=== PATIENT | female | born 1955 | race Caucasian/White ===

== ENCOUNTER 2024-12-28 11:09 | Inpatient (IN) | payer MEDICARE, OTHER, SELFPAY ==
[2024-12-26 08:20] VITALS: BP 163/85
--- NOTE | 2024-12-26 09:41 | ED.GENMED ---
History of Present Illness
General
Chief Complaint: Abdominal Symptoms
Source: patient
Exam Limitations: none
Time Seen by Provider: 12/26/24 09:09
Nursing documentation reviewed up to this point in time: agreed with
Travel History
Have you traveled to any high risk areas for coronavirus over the past 14 days?: No
History of Present Illness
History of Present Illness:
The patient is a pleasant 69-year-old female who reports 5 days of watery, nonbloody frequent episodes of diarrhea, as well as 3 days of vomiting, especially after a coughing spell. Patient reports she has been recovering from bronchitis. She
denies any recent antibiotic use. She reports her doctor gave her steroids for the bronchitis. She reports chills but no definite fever. Patient reports that last night she had difficulty sleeping due to pain on her right upper side and frequent
episodes of nausea and vomiting. Patient reports that the pain on her right upper side is no worse when she takes a deep breath. She is currently not nauseous. She denies sick contacts and recent travel.
Past History
Past History
ED Past Medical History: Asthma, HTN, Hypercholesterolemia and Hypothyroidism
ED Past Surgical History: Tonsilectomy
Social History
Tobacco: Non-smoker
Alcohol: None
Drug: None
Personal:
Living: with family
Employment: Employed
Review of Systems
Review of Systems
Allergies reviewed?: Yes
All Other Systems: ROS reviewed and negative except as documented in HPI and ROS
Constitutional: Reports fatigue and chills
EENT: Reports no symptoms
Respiratory: Reports cough
Cardiac: Reports no symptoms
ABD/GI: Reports abdominal pain, nausea, vomiting and diarrhea
: Reports no symptoms
Musculoskeletal: Reports other (Right upper side pain)
Skin: Reports no symptoms
Neurological: Reports no symptoms
Endocrine: Reports no symptoms
Hematologic/Lymphatic: Reports no symptoms
Psychiatric: Reports no symptoms
Phy Exam
Physical Exam
Physical Exam:
Physical Exam
General: no apparent distress, not acutely ill
Neck: supple. no meningeal signs. normal psoterior pharynx
Heart: s1/s2 regular rate and rhythm, no murmur. equal radial pulses.
Lungs: no acute respiratory distress. clear bilaterally
Abdomen: Normal bowel sounds, reproducible tenderness right lateral chest wall area/upper part of right upper quadrant. Abdomen is soft and nontender throughout
Neuro: alert and oriented. no focal neurological deficits
Skin: no rash
Psychiatric: well kept. interactive and cooperative
Extremities: no edema. no calf tenderness. negative homans. good distal pulses
Course
Orders/Labs/Results
Orders:
Orders
12/26/24 09:31
Complete Blood Count/With Diff Urgent
Comprehensive Metabolic Panel Urgent
Lipase Urgent
12/26/24 09:40
STOOL [C difficile Antigen & Toxins] Urgent
SARINA Source: Feces/Stool
Specimen Description:
Stool Culture Urgent
SARINA Source: Feces/Stool
Specimen Description:
0.9% Sodium Chloride 1000 ml [Nss] 1,000 ml IV BOLUS
12/26/24 09:47
CR Chest - 2 Views Urgent
Comment:
Reason For Exam: R upper flank pain
12/26/24 10:35
Urinalysis Reflex To Culture Urgent
Date Specimen was Collected: 12/26/24
Time Specimen was Collected: 10:34
Urine Microscopic Reflex Cult Urgent
Urine Culture Urgent
SARINA Source: U
Specimen Description:
Date Specimen was Collected: 12/26/24
Time Specimen was Collected: 10:34
12/26/24 11:00
CT Chest W/o Iv Contrast Urgent
Comment:
Reason For Exam: cough, history of nodule on lung
12/26/24 11:01
CT Abd/pelvis W Iv Cont Urgent
Comment:
Reason For Exam: n/v, R sided ab pain
12/26/24 12:41
CefTRIAXone [Rocephin] 1,000 mg IV NOW STA
Prochlorperazine [Compazine] 10 mg IV NOW STA
Abnormal Lab Results
12/26/24 12/26/24
09:31 10:35
RBC 5.70 H 10^6/uL
(4.20-5.40)
Hct 50.8 H %
(37.0-47.0)
MCHC 31.5 L g/dL
(33.0-37.0)
Abs Immat Gran (auto) 0.1 H 10^3/uL
(0-0.05)
Absolute Neuts (auto) 8.0 H 10^3/uL
(1.4-6.5)
Absolute Lymphs (auto) 1.1 L 10^3/uL
(1.2-3.4)
Immature Gran % 0.7 H %
(0-0.5)
Neutrophils % 79.6 H %
(42.2-75.2)
Lymphocytes % 11.3 L %
(20.5-51.1)
Chloride 111 H mmol/L
(98-107)
Glucose 114 H mg/dl
(70-99)
Calcium 10.4 H mg/dl
(8.4-10.2)
Ur Occult Blood Reflex 4+ A
(Negative)
Leukocyte Esterase Rfl 3+ A
(Negative)
Urine RBC 50-60 A /HPF
(0-2)
Urine WBC (Reflex) 90-100 A /HPF
(0-5)
Urine Bacteria (Reflex) Moderate A
(Negative)
Urine Albumin (Reflex) 2+ A
(Neg - Trace)
12/26/24 09:31
12/26/24 09:31
Vital Signs
Initial and Last Documented VS:
Initial Vital Signs
Temp Pulse Resp BP Pulse Ox
98.3 F 66 16 163/85 98
12/26/24 08:20 12/26/24 08:20 12/26/24 08:20 12/26/24 08:20 12/26/24 08:20
Last Documented Vital Signs
Temp Pulse Resp BP Pulse Ox
97.8 F 58 20 137/78 98
12/26/24 11:47 12/26/24 11:47 12/26/24 11:47 12/26/24 11:47 12/26/24 11:47
MDM/Problems Addressed
Differential Diagnosis Includes:
Pneumonia, acute cholecystitis, musculoskeletal strain from coughing, C. difficile, gastroenteritis
MDM/Problems Addressed:
Patient presents with acute cough, right upper side pain, fatigue, vomiting and diarrhea
Acute Exacerbation and/or Progression of Chronic Illness:
Patient is acutely hypertensive likely due to not feeling well and anxiety being in the ED. She reports she generally never has high blood pressure
Acute Exacerbation and/or Progression of Chronic Illness: HTN
*Radiology
Radiology exam reviewed: preliminary read by ED provider (Chest x-ray read by me. No acute disease) and radiology read reviewed
*Pulse Oximetry
Patient hypoxic: no
*Critical Care Note
Total Time (30-74mins, 75-104mins- exclusive of procedures): Not Applicable
Data Reviewed
Review of Other/Old Records Reveals: Radiology Studies (Normal-appearing chest x-ray July 2023. I reviewed image.)
ED Attending Note
-
Portions of this chart may have been created with voice recognition software.� Occasional wrong word or��sound alike� substitutions may have occurred due to the inherent limitations of voice recognition software.
Discharge Plan
Departure
Patient Disposition: Admit
Date of Disposition: 12/26/24
Time of Disposition: 12:40
Admit to: Med/Surg
Presentation/result/management discussed w/ accepting MD/DO: Hospitalist
Patient with high blood pressure during this ER visit?: Yes
Condition: Good
Covid-19: Not Applicable
Discharge Problem:
Acute UTI, Acute vomiting, Bilateral kidney stones, Acute diarrhea
Prescriptions:
No Action
levothyroxine 100 mcg Tablet
100 mcg PO DAILY
hydrochlorothiazide 25 mg Tablet
25 mg PO DAILY
fenofibrate 120 mg Tablet
120 mg PO DAILY
Vitamin D3
4,000 unit PO DAILY
ibuprofen [Advil] 200 mg Tablet
600 mg PO Q6H PRN (Reason: pain)
albuterol sulfate [Proventil HFA] 90 mcg/actuation HFA aerosol inhaler
2 puff inhalation Q4H PRN (Reason: shortness of breath or wheezing) Qty: 8.5 2RF
methylprednisolone [Medrol (Gary)] 4 mg tablets,dose pack
See Rx Instructions .ROUTE .COMPLEX Qty: 21 0RF
Rx Instructions:
orally per package directions
loperamide [Imodium A-D] 2 mg capsule
2 mg PO Q6H PRN (Reason: loose stool) Qty: 20 0RF
prochlorperazine maleate [Compazine] 10 mg tablet
10 mg PO Q8H PRN (Reason: nausea and vomiting) Qty: 14 0RF
Referrals:
Deshawn Milner PA [Family Provider] -
Interventions
Interventions:
*Risk Screen - Suicide Last Done: 12/26/24 08:20
*General Assessment Last Done: 12/26/24 09:36
*Neglect/Abuse Screening Last Done: 12/26/24 08:20
*ED- Fall Risk Assessment Last Done: 12/26/24 09:36
EF-Bshdtc-Lawiipgmcq Assessment Last Done: 12/26/24 09:34
Discharge Date and Time
Print Language: KYRGYZ
[2024-12-26] MEDS: NSS 1000 IV ×3 (09:42→23:49)
[2024-12-26 10:00] LABS: % Basophils 0.5 % (0-2); % Eosinophils 1.5 % (0-6); % Immature Granulocytes 0.7 % (0-0.5); % Lymphocytes 11.3 % (20.5-51.1); % Monocytes 6.4 % (1.7-9.3); % Neutrophils 79.6 % (42.2-75.2); Absolute Basophils 0.1 10^3/uL (0-0.2); Absolute Eosinophils 0.2 10^3/uL (0-0.7); Absolute Immature Granulocytes 0.1 10^3/uL (0-0.05); Absolute Lymphocytes 1.1 10^3/uL (1.2-3.4); Absolute Monocytes 0.6 10^3/uL (0.1-0.6); Hematocrit 50.8 % (37.0-47.0); Mean Corp Hgb Conc. 31.5 g/dL (33.0-37.0); Mean Corpuscular Hgb 28.1 pg (27.0-31.0); Mean Corpuscular Volume 89.1 fL (81.0-99.0); Mean Platelet Volume 10.1 fL (7.4-10.4); Nucleated Red Blood Cells % 0 %; Platelet Count 292 10^3/uL (130-400); Red Cell Dist. Width 14.4 % (11.5-14.5)
[2024-12-26 10:09] LABS: ALT (SGPT) 19 U/L (0-35); AST (SGOT) 17 U/L (14-36); Albumin 4.4 g/dl (3.5-5.0); Alkaline Phosphatase 53 U/L (38-126); Blood Urea Nitrogen 13 mg/dl (7-17); Calcium 10.4 mg/dl (8.4-10.2); Carbon Dioxide 24 mmol/L (22-30); Chloride 111 mmol/L (98-107); Glucose 114 mg/dl (70-99); Lipase 47 U/L (23-300); Potassium 4.7 mmol/L (3.5-5.1); Sodium 141 mmol/L (135-145); Total Bilirubin 0.6 mg/dl (0.2-1.3); eGFR > 60.00
[2024-12-26 10:55] LABS: Urine Albumin 2+ (Neg - Trace); Urine Bilirubin Negative (Negative); Urine Character Slightly Cloudy (Clear); Urine Color Yellow; Urine Glucose Negative (Negative); Urine Ketone Negative (Negative); Urine Leukocyte 3+ (Negative); Urine Nitrite Negative (Negative); Urine Occult Blood 4+ (Negative); Urine Specific Gravity 1.025 (<1.030); Urine Urobilinogen Negative (Neg - 1+)
[2024-12-26 11:47] VITALS: BP 137/78
[2024-12-26 11:51] LABS: Urine Squamous Cell >30 /LPF (Few)
[2024-12-26 11:53] LABS: Urine Amorphous Seen
[2024-12-26 11:54] LABS: Urine White Cell 90-100 /HPF (0-5)
[2024-12-26 11:56] LABS: Urine Bacteria Moderate (Negative); Urine Red Blood Cell 50-60 /HPF (0-2)
[2024-12-26] MEDS: ROCEPHIN 1000 MG IV (12:51)
[2024-12-26] MEDS: COMPAZINE 10 MG IV ×2 (12:52→21:16)
--- NOTE | 2024-12-26 13:17 | HPS.HSE ---
Family Physician
-
Family Physician: GILL Cook
Chief Complaint
-
Vomiting and Diarrhea
History of Present Illness
Patient is 69 y/o female past medical history of hypertension, hyperlipidemia, and hypothyroidism who presents with vomiting and diarrhea. Patient reports significant diarrhea over the past 5 days. She reports episodes can occur almost every
hour. She describes stool as pure liquid and denies any bloody diarrhea. She also reports vomiting with inability to tolerate any oral intake at this point in time. She reports significant chills but denies any recorded fevers. She denies similar
episodes in the past. She denies recent antibiotics, recent travel, unusual food intake or sick contacts.
Medical History
Past Medical History
Past Medical History: Reports Other
Additional Past Medical History:
Essential Hypertension
Hyperlipidemia
Hypothyroidism
Asthma
Past Surgical History: Reports Other
Additional Past Surgical History:
Uterine Artery Embolization
Tonsillectomy
Left Breast Lipoma Removal
Social History
Tobacco: Non-smoker
Alcohol: Occasional
Drug: None
Family History
Family History: Not pertinent
Allergies / Home Medications
Allergies reflects when Allergies were last updated in [facility].
Home Medications with original date entered in [facility]
Allergy/Medication List:
Allergies
Allergy/AdvReac Type Severity Reaction Status Date / Time
acetaminophen Allergy Unknown Verified 12/26/24 08:23
codeine Allergy Unknown Verified 12/26/24 08:23
fentanyl Allergy Unknown Verified 12/26/24 08:23
ondansetron Allergy Unknown Verified 12/26/24 08:23
oxycodone Allergy Unknown Verified 12/26/24 08:23
silver sulfadiazine Allergy Unknown Verified 12/26/24 08:23
Sulfa (Sulfonamide Allergy Unknown Verified 12/26/24 08:23
Antibiotics)
trimethobenzamide Allergy Unknown Verified 12/26/24 08:23
Home Medications
cholecalciferol (vitamin D3) 25 mcg (1,000 unit) tablet (Vitamin D3) 25 mcg PO DAILY 05/03/22
hydrochlorothiazide 25 mg tablet 25 mg PO DAILY 05/03/22
ibuprofen 200 mg tablet (Advil) 600 mg PO Q6HPRN PRN mild pain 05/03/22
levothyroxine 100 mcg tablet 100 mcg PO DAILY 05/03/22
albuterol sulfate 90 mcg/actuation aerosol inhaler 2 puff inhalation R Q6HPRN PRN sob 12/26/24
budesonide-formoterol HFA 160 mcg-4.5 mcg/actuation aerosol inhaler (Breyna) 2 inh inhalation R BID 12/26/24
fenofibrate 160 mg tablet 160 mg PO DAILY 12/26/24
Review of Systems
-
History Source: Patient
A 12 point ROS was completed and negative except as noted: Yes
Constitutional: Denies Fever or Chills
Respiratory: Denies Cough or Trouble Breathing
Cardiac: Denies Chest Pain or Palpitations
Physical Exam
Vital Signs
Vital Signs
Temp Pulse Resp BP Pulse Ox
97.8 F 58 20 137/78 98
12/26/24 11:47 12/26/24 11:47 12/26/24 11:47 12/26/24 11:47 12/26/24 11:47
Physical Exam
General: Comfortable, Conversant and Morbidly Obese
HEENT: NormoCephalic, Anicteric and Atraumatic
Respiratory: Clear and Non Labored Respirations; No Wheezes
Cardiac: S1/S2 and Regular Rhythm; No Tachycardia
GI: Soft, Non Tender and Other (Protuberant)
Rectal: Deferred by Provider
Musculoskeletal: No Clubbing and No Cyanosis
Skin: Warm and Dry
Neuro: Awake, Alert, Oriented and Nonfocal/grossly intact
Psych: Calm
Laboratory Results
-
12/26/24 09:31
12/26/24 09:31
Laboratory Results
Total Bilirubin 0.6 mg/dl (0.2-1.3) 12/26/24 09:31
AST 17 U/L (14-36) 12/26/24 09:31
ALT 19 U/L (0-35) 12/26/24 09:31
Alkaline Phosphatase 53 U/L (38-126) 12/26/24 09:31
Lipase 47 U/L (23-300) 12/26/24 09:31
Chest X-Ray:
No acute cardiopulmonary process.
Chest CT Scan:
No CT evidence for acute cardiopulmonary process.
4 mm and 2 mm solid pulmonary nodules in the left lower lobe.
Abd/Pelvis CT Scan:
CT findings are most suspicious for an enteritis, greatest in the upper abdomen involving proximal jejunal small bowel loops with wall thickening, inflammatory fat stranding, and reactive mesenteric lymphadenopathy.
Bilateral nephrolithiasis.
Data Reviewed
-
CT Scan: Report Reviewed by me
Lab Data: Labs Reviewed by me
Impression/Plan
-
Small Bowel Enteritis, likely viral in nature
-Continue NPO/IVFs with sips and chips
-Continue anti-emetics
-Attempt to check stool studies
Abnormal Urinalysis
-Appears mostly contaminated
-Patient received one dose of ceftriaxone in ED - Hold on further antibiotics pending urine culture
Essential Hypertension
-Hold HCTZ while NPO
Hyperlipidemia
-Continue fenofibrate
Hypothyroidism
-Continue levothyroxine
Asthma, no acute exacerbation
-Continue budesonide-formoterol
-Continue albuterol prn
Pulmonary Nodules
-Follow-up as outpatient
DVT proph: Lovenox
Code Status: Full Code
--- NOTE | 2024-12-26 13:38 | W.PN.UPDATE ---
Update Note
Progress Note Update
This is an addendum to the H&P written by Kendra Sargent on 12/26/2024.� Patient seen and examined independently with PA.
69-year-old female past medical history of asthma, hypertension, hypercholesteremia, hypothyroidism presenting with 5 days of watery, nonbloody frequent diarrhea 3 days of vomiting.� Has been having cough from recovering bronchitis.� Chills without
fever.� Having pain in the right upper quadrant abdomen.
Vital signs normal.
Urinalysis shows 90-100. CT abdomen pelvis shows enteritis greatest in the upper abdomen involving proximal jejunal small bowel loops with wall thickening, inflammatory fat stranding and reactive mesenteric lymphadenopathy.
Patient with likely acute viral gastroenteritis.
NPO.� Check stool studies.� IV fluids.� Given ceftriaxone for UTI however will discontinue as no urinary symptoms.
[2024-12-26 16:21] VITALS: BMI 46.8
[2024-12-26 18:03] VITALS: BP 138/69
[2024-12-26] MEDS: SYMBICORT 160/4.5 MCG INHALER 2 PUFF INH (21:45)
[2024-12-27] VITALS (7 sets, daily range): BP systolic 126–178; BP diastolic 64–77; BMI 47.1
[2024-12-27 05:59] LABS: Hematocrit 44.8 % (37.0-47.0); Hemoglobin 14.2 g/dL (12.0-16.0); Mean Corp Hgb Conc. 31.7 g/dL (33.0-37.0); Mean Corpuscular Volume 88.2 fL (81.0-99.0); Platelet Count 234 10^3/uL (130-400); Red Blood Cell Count 5.08 10^6/uL (4.20-5.40); Red Cell Dist. Width 14.3 % (11.5-14.5); White Blood Cell Count 8.8 10^3/uL (4.8-10.8)
[2024-12-27] MEDS: SYNTHROID PO (06:01)
[2024-12-27 06:18] LABS: Blood Urea Nitrogen 13 mg/dl (7-17); Calcium 9.4 mg/dl (8.4-10.2); Carbon Dioxide 19 mmol/L (22-30); Chloride 115 mmol/L (98-107); Estimated Creatinine Clearance > 125 ml/min; Glucose 111 mg/dl (70-99); Potassium 4.2 mmol/L (3.5-5.1); Sodium 141 mmol/L (135-145); eGFR > 60.00
[2024-12-27] MEDS: SYMBICORT 160/4.5 MCG INHALER 2 PUFF INH ×2 (08:10→20:04)
[2024-12-27] MEDS: TRICOR 145 MG PO (08:19)
[2024-12-27] MEDS: NSS 1000 IV (08:30)
[2024-12-27] MEDS: SODIUM BICARBONATE 1150 MEQ IV ×2 (09:28→20:49)
--- NOTE | 2024-12-27 09:47 | CM ---
CM met with pt bedside
Pt resides with her dtr (35 y/o) and granddtr (7 y/o) in a [place] with [address]STE
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
Denies use of DMEs
Pt has Part D coverage through [employer]
SHIELDS verbally reviewed, copy provided
PCP- Deshawn Milner
[facility]
Discharge Disposition- anticipate home no needs
--- NOTE | 2024-12-27 11:44 | W.PN.HOSP.TC ---
Today's Communication/Plan
-
see outlined plan below
Assessment / Plan
Assessment / Plan
Assessment:
Small Bowel gastroenteritis
- viral vs bacterial in nature
- start empiric Zosyn
- probiotic
- C. Diff, norovirus negative. Await stool culture
- start clears
- supportive care with anti-emetics
Iatrogenic metabolic acidosis from NSS infusion
- stop NSS infusion, switch to Bicarb
Abnormal Urinalysis
- Appears mostly contaminated
- follow culture; will be on Zosyn for GI process anyway
Essential Hypertension
- Hold HCTZ while NPO
Hyperlipidemia
- continue fenofibrate
Hypothyroidism
- continue levothyroxine
Asthma, no acute exacerbation
- continue budesonide-formoterol
- continue albuterol prn
Pulmonary Nodules
- Follow-up as outpatient
DVT proph: Lovenox
Code Status: Full Code
Anticipated Discharge: > 48 hours
Subjective/Interval History
-
Date of Service: December 27, 2024
reports less frequency diarrhea - dark contents, no blood
reports abd cramps, no pain
no nausea/vomiting
no fevers
Objective Data
-
Labs:
Laboratory Results
12/27/24
05:23
WBC 8.8
Hgb 14.2
Hct 44.8
Plt Count 234
Sodium 141
Potassium 4.2
Chloride 115 H
Carbon Dioxide 19 L
BUN 13
Creatinine 0.6
Glucose 111 H
Calcium 9.4
Vital Signs:
Vital Signs
Temp Pulse Resp BP Pulse Ox
98.0 F 54 18 134/64 95
12/27/24 08:27 12/27/24 08:27 12/27/24 08:27 12/27/24 08:27 12/27/24 08:27
I&O
12/26/24 12/27/24 12/28/24
06:59 06:59 06:59
Intake Total 1250 / 1250
Balance 1250 / 1250
Physical Exam
-
General: No Apparent Distress
HEENT: Normocephalic and Atraumatic
Respiratory: Negative Wheezes
Cardiac: Regular Rhythm and S1/S2
GI: Nontender and Nondistended
Musculoskeletal: No Edema
Neuro: AO x 3
Psych: Calm
Data Reviewed
-
Total Time Spent with Patient (in minutes): 45
Labs: Labs Reviewed by me
[2024-12-27] MEDS: ZOSYN 50 IV ×3 (12:53→23:08)
--- NOTE | 2024-12-27 17:06 | PTCARENOTE ---
Assumed care of pt. Vitals done and stable. Pt on full liquids and awaiting bed. Pt with no complaints at this time.
--- NOTE | 2024-12-27 19:11 | PTCARENOTE ---
report sent to 421- floor notified- room dirty.
[2024-12-27] MEDS: COMPAZINE 5 MG IV (19:20)
--- NOTE | 2024-12-27 20:34 | PTCARENOTE ---
Pt being sent to room 421- room ready.
--- NOTE | 2024-12-27 20:45 | PTCARENOTE ---
Pt arrived onto floor @2044. Pt AAOx3 and arrived on a hospital bed. Pt with no complaints of pain or SOB at this time. Pt oriented to room and call rodríguez; will continue to monitor
[2024-12-27] MEDS: LIDOCAINE 4% PATCH 1 PATCH TOPICAL (23:08)
[2024-12-28 03:37] VITALS: BP 141/79
[2024-12-28] MEDS: SYNTHROID 100 MCG PO (04:58)
[2024-12-28] MEDS: ZOSYN 50 IV ×3 (05:01→17:19)
[2024-12-28] MEDS: COMPAZINE 5 MG IV ×2 (06:58→20:05)
[2024-12-28 07:00] VITALS: BP 138/65
[2024-12-28] MEDS: SYMBICORT 160/4.5 MCG INHALER 2 PUFF INH ×2 (07:45→19:35)
[2024-12-28 08:06] LABS: Hematocrit 45.7 % (37.0-47.0); Hemoglobin 14.6 g/dL (12.0-16.0); Mean Corp Hgb Conc. 31.9 g/dL (33.0-37.0); Mean Corpuscular Hgb 27.9 pg (27.0-31.0); Mean Corpuscular Volume 87.2 fL (81.0-99.0); Mean Platelet Volume 10.6 fL (7.4-10.4); Platelet Count 248 10^3/uL (130-400); Red Blood Cell Count 5.24 10^6/uL (4.20-5.40); Red Cell Dist. Width 14.2 % (11.5-14.5); White Blood Cell Count 10.1 10^3/uL (4.8-10.8)
[2024-12-28 08:30] LABS: Blood Urea Nitrogen 13 mg/dl (7-17); Calcium 9.4 mg/dl (8.4-10.2); Carbon Dioxide 27 mmol/L (22-30); Chloride 105 mmol/L (98-107); Estimated Creatinine Clearance 124 ml/min; Glucose 108 mg/dl (70-99); Potassium 3.8 mmol/L (3.5-5.1); Sodium 137 mmol/L (135-145); eGFR > 60.00
[2024-12-28] MEDS: TRICOR 145 MG PO (09:10)
[2024-12-28 09:46] VITALS: BP 130/81; BP 157/82; PULSE 82
--- NOTE | 2024-12-28 11:10 | W.PN.HOSP.TC ---
Today's Communication/Plan
-
continue IV Zosyn
probiotic
diet: Fulls
Assessment / Plan
Assessment / Plan
Assessment:
Small Bowel gastroenteritis
- viral vs bacterial in nature
- continue empiric Zosyn, day 2
- probiotic daily
- C. Diff, norovirus negative. Await stool culture
- diet: advance to fulls
- supportive care with anti-emetics
Iatrogenic metabolic acidosis from NSS infusion
- improved with bicarb IVF; cap IVF now
Abnormal Urinalysis
- culture confirms contamination
Essential Hypertension
- Hold HCTZ while NPO
Hyperlipidemia
- continue fenofibrate
Hypothyroidism
- continue levothyroxine
Asthma, no acute exacerbation
- continue budesonide-formoterol
- continue albuterol prn
Pulmonary Nodules
- Follow-up as outpatient
DVT proph: Lovenox
Code Status: Full Code
Anticipated Discharge: Within 24 hours
Subjective/Interval History
-
Date of Service: December 28, 2024
tolerating clears
no abd pain
loose stools persist
Objective Data
-
Labs:
Laboratory Results
12/28/24
06:55
WBC 10.1
Hgb 14.6
Hct 45.7
Plt Count 248
Sodium 137
Potassium 3.8
Chloride 105
Carbon Dioxide 27
BUN 13
Creatinine 0.7
Glucose 108 H
Calcium 9.4
Vital Signs:
Vital Signs
Temp Pulse Resp BP Pulse Ox
97.8 F 58 16 138/65 98
12/28/24 07:00 12/28/24 07:47 12/28/24 07:47 12/28/24 07:00 12/28/24 08:00
I&O
12/27/24 12/28/24 12/29/24
06:59 06:59 06:59
Intake Total 1250 / 1250 2059
Balance 1250 / 1250 2059
Physical Exam
-
General: No Apparent Distress
HEENT: Normocephalic and Atraumatic
Respiratory: Negative Wheezes
Cardiac: Regular Rhythm and S1/S2
GI: Soft
Genito-urinary: No Costovertebral Tender
Neuro: AO x 3
Psych: Calm
Data Reviewed
-
Total Time Spent with Patient (in minutes): 42
Labs: Labs Reviewed by me
[2024-12-28] MEDS: VISBIOME 1 CAP PO (11:25)
--- NOTE | 2024-12-28 11:40 | CM ---
Chart reviewed and pt seen at bedside. Pt plans to dc home, denies CM needs at this time.
Plan: DC home, no needs
[2024-12-28 15:00] VITALS: BP 133/64
[2024-12-28] MEDS: MYLICON 80 MG PO (17:32)
[2024-12-28] MEDS: LIDOCAINE 4% PATCH 2 PATCH TOPICAL (19:32)
[2024-12-28 22:50] VITALS: BP 136/62
[2024-12-29] MEDS: ZOSYN 50 IV ×3 (00:17→12:46)
[2024-12-29] MEDS: SYNTHROID 100 MCG PO (05:38)
[2024-12-29] MEDS: COMPAZINE 5 MG IV (06:25)
[2024-12-29 07:22] VITALS: BP 128/52
[2024-12-29] MEDS: SYMBICORT 160/4.5 MCG INHALER 2 PUFF INH (07:28)
[2024-12-29] MEDS: TRICOR 145 MG PO (08:10)
[2024-12-29] MEDS: VISBIOME 1 CAP PO (08:11)
[2024-12-29 08:46] LABS: Hematocrit 44.7 % (37.0-47.0); Hemoglobin 14.6 g/dL (12.0-16.0); Mean Corp Hgb Conc. 32.7 g/dL (33.0-37.0); Mean Corpuscular Hgb 28.2 pg (27.0-31.0); Mean Corpuscular Volume 86.3 fL (81.0-99.0); Mean Platelet Volume 10.4 fL (7.4-10.4); Platelet Count 226 10^3/uL (130-400); Red Blood Cell Count 5.18 10^6/uL (4.20-5.40); White Blood Cell Count 9.8 10^3/uL (4.8-10.8)
--- NOTE | 2024-12-29 10:41 | CM ---
CM reviewed chart, patient seen bedside, IMM verbally reviewed, provided to patient, placed in chart. Patient plan remains home no needs, likely for discharge today. CM will continue to follow for all discharge planning needs.
Plan; home no needs anticipated
[2024-12-29 10:50] LABS: Blood Urea Nitrogen 11 mg/dl (7-17); Calcium 9.4 mg/dl (8.4-10.2); Carbon Dioxide 25 mmol/L (22-30); Chloride 104 mmol/L (98-107); Estimated Creatinine Clearance 124 ml/min; Glucose 99 mg/dl (70-99); Potassium 3.7 mmol/L (3.5-5.1); Sodium 137 mmol/L (135-145); eGFR > 60.00
--- NOTE | 2024-12-29 12:46 | W.PN.HOSP.TC ---
Today's Communication/Plan
-
LRD
if tolerates, dc home
PCP f/u in 1 week
Assessment / Plan
Assessment / Plan
Assessment:
Small Bowel gastroenteritis
- viral vs bacterial in nature
- dc on Augmentin total 10 days
- probiotic daily
- C. Diff, norovirus negative. Await stool culture
- diet: LRD
- supportive care with anti-emetics
Iatrogenic metabolic acidosis from NSS infusion
- improved with bicarb IVF; cap IVF now
Abnormal Urinalysis
- culture confirms contamination
Essential Hypertension
- resume HCTZ at discharge
Hyperlipidemia
- continue fenofibrate
Hypothyroidism
- continue levothyroxine
Asthma, no acute exacerbation
- continue budesonide-formoterol
- continue albuterol prn
Pulmonary Nodules
- Follow-up as outpatient
DVT proph: Lovenox
Code Status: Full Code
More than 30 minutes spent in discharge including
Final examination of the patient
Summarizing hospital stay
Instructions for continuing care to all relevant caregivers
Preparation of discharge records, prescriptions, and referral forms
Total time spent (in minutes):41
Anticipated Discharge: Today
Subjective/Interval History
-
Date of Service: December 29, 2024
diarrhea slightly improving, less frequency
tolerating fulls
Objective Data
-
Labs:
Laboratory Results
12/29/24
07:18
WBC 9.8
Hgb 14.6
Hct 44.7
Plt Count 226
Sodium 137
Potassium 3.7
Chloride 104
Carbon Dioxide 25
BUN 11
Creatinine 0.7
Glucose 99
Calcium 9.4
Vital Signs:
Vital Signs
Temp Pulse Resp BP Pulse Ox
98.6 F 58 18 128/52 98
12/29/24 07:22 12/29/24 07:29 12/29/24 07:29 12/29/24 07:22 12/29/24 08:00
I&O
12/28/24 12/29/24 12/30/24
06:59 06:59 06:59
Intake Total 2059 1440 / 1440
Balance 2059 1440 / 1440
Physical Exam
-
General: No Apparent Distress
HEENT: Normocephalic and Atraumatic
Respiratory: Negative Wheezes
Cardiac: Regular Rhythm and S1/S2
GI: Soft and Nontender
Musculoskeletal: No Edema
Neuro: AO x 3
Hematologic / Lymphatic: No Lymphadenopathy
Psych: Calm
Data Reviewed
-
Total Time Spent with Patient (in minutes): 41
Labs: Labs Reviewed by me
--- NOTE | 2024-12-29 12:54 | W.DS.TRANS ---
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
-
Discharge Instructions:
Discharge Diagnosis/Procedures Gastroenteritis
Diet Low Residue
Activity As tolerated
Bathing Restrictions None
Instructions:
Stand-Alone Forms:
Changes to Home Medications: No
Discharge Medications:
DC Medications w/original date entered in [employer]
cholecalciferol (vitamin D3) 25 mcg (1,000 unit) tablet (Vitamin D3) 25 mcg PO DAILY 05/03/22
hydrochlorothiazide 25 mg tablet 25 mg PO DAILY 05/03/22
ibuprofen 200 mg tablet (Advil) 600 mg PO Q6HPRN PRN mild pain 05/03/22
levothyroxine 100 mcg tablet 100 mcg PO DAILY 05/03/22
albuterol sulfate 90 mcg/actuation aerosol inhaler 2 puff inhalation R Q6HPRN PRN sob 12/26/24
budesonide-formoterol HFA 160 mcg-4.5 mcg/actuation aerosol inhaler (Breyna) 2 inh inhalation R BID 12/26/24
fenofibrate 160 mg tablet 160 mg PO DAILY 12/26/24
amoxicillin 875 mg-potassium clavulanate 125 mg tablet 1 tab PO Q12H #14 tabs 12/29/24
simethicone 80 mg chewable tablet 80 mg PO QIDPRN PRN gas/bloating #30 tabs 12/29/24
Home Medication Changes
Pending Results: No
Total time spent discharging patient (in min): 41
[2024-12-29 14:15] VITALS: BP 131/65
== END 2024-12-29 15:16 | disposition home or self-care (01) | DRG 392 ==
LOC: 4 WEST ACU 11:09
PROVIDERS: Physician Assistant Medical; ADMITTING PHYSICIAN Hospitalist; ATTENDING PHYSICIAN Internal Medicine; EMERGENCY PHYSICIAN Emergency Medicine; FAMILY PHYSICIAN Physician Assistant Medical
DX: A08.4 Viral intestinal infection, unspecified (principal); N39.0 Urinary tract infection, site not specified; E87.20 Acidosis, unspecified; Z68.42 Body mass index [BMI] 45.0-49.9, adult; E03.9 Hypothyroidism, unspecified; E78.00 Pure hypercholesterolemia, unspecified; E66.01 Morbid (severe) obesity due to excess calories; I10 Essential (primary) hypertension; J45.909 Unspecified asthma, uncomplicated; R91.8 Other nonspecific abnormal finding of lung field; N20.0 Calculus of kidney; Z79.890 Hormone replacement therapy; Z88.6 Allergy status to analgesic agent; Z88.1 Allergy status to other antibiotic agents; Z88.5 Allergy status to narcotic agent; Z88.2 Allergy status to sulfonamides; Z88.8 Allergy status to other drugs, medicaments and biological substances
CPT/HCPCS: 71046; 71250; 74177; 80048; 80053; 81003; 81015; 83690; 85025; 85027; 87045; 87046; 87086; 87324; 87427; 87449; 87798; 89055; 94640; 97162; Q9967

== ENCOUNTER 2025-01-08 08:25 | Emergency (ER) | payer MEDICARE, OTHER, SELFPAY ==
[2025-01-08 08:46] VITALS: BP 151/94
--- NOTE | 2025-01-08 09:37 | ED.GENMED ---
History of Present Illness
General
Chief Complaint: Skin Problem
Source: patient
Exam Limitations: none
Time Seen by Provider: 01/08/25 09:16
Nursing documentation reviewed up to this point in time: agreed with
History of Present Illness
History of Present Illness:
69 yr old female presents to the ER complaining of left arm discomfort. Pt reports she was hospitalized manage into December 29 for UTI/gastroenteritis and was on antibiotics at the time intravenously. Patient reports at that time her IV did
infiltrate. She had redness to the arm after. SHe reports she was on antibx (Augmentin ) and so when she was discharged she continued antibx and the redness resolved. She does report however that since she has noticed lumps ' in the veins ' of her
left arm. She was seen in urgent care several days ago recommended to come to the ER for ultrasound. She denies any swelling or redness. She does feel sore to the area.
Past History
Past History
ED Past Medical History: Asthma, HTN, Hypercholesterolemia and Hypothyroidism
ED Past Surgical History: Tonsilectomy
Social History
Tobacco: Non-smoker
Alcohol: None
Drug: None
Personal:
Living: with family
Employment: Employed
Review of Systems
Review of Systems
Allergies reviewed?: Yes
All Other Systems: ROS reviewed and negative except as documented in HPI and ROS
Constitutional: Reports no symptoms; Denies fever, fatigue or chills
Phy Exam
General Physical Exam
General Presentation: no apparent distress
General age: appears stated age
General Skin: warm and dry
General Habitus: obese
General Mental: alert
Neurological Exam
Neurological Exam: alert and oriented x3
Musculoskeletal Exam
Musculoskeletal Exam: other (Left upper extremity strong pulses no obvious swelling or redness, left antecubital region with mild palpable nodularity )
Skin Exam
Skin Exam: normal color
Course
Orders/Labs/Results
Orders:
Orders
01/08/25 10:06
Venous Doppler Upr Ext Left [US Periph Venous UPPER Ext LT] Urgent
Comment:
Reason For Exam: pain/hx of IV infiltration
Vital Signs
Initial and Last Documented VS:
Initial Vital Signs
Temp Pulse Resp BP Pulse Ox
98.0 F 65 16 151/94 98
01/08/25 08:46 01/08/25 08:46 01/08/25 08:46 01/08/25 08:46 01/08/25 08:46
Last Documented Vital Signs
Temp Pulse Resp BP Pulse Ox
98.0 F 65 16 151/94 98
01/08/25 08:46 01/08/25 08:46 01/08/25 08:46 01/08/25 08:46 01/08/25 08:46
MDM/Problems Addressed
Differential Diagnosis Includes:
Not limited to DVT superficial thrombophlebitis
MDM/Problems Addressed:
Ultrasound shows acute fibrosis of the left cephalic vein in both the upper arm and forearm. Patient has no evidence of infection on exam strong pulses and no acute distress and well-appearing no fevers. Case reviewed with vascular surgery on-call
Dr. Olivera this is a superficial vein and does not need anticoagulation will DC with supportive care warm compresses Motrin/tylenol and outpt follow up
*Radiology
Radiology exam reviewed: radiology read reviewed
*Pulse Oximetry
Patient hypoxic: no
*Critical Care Note
Total Time (30-74mins, 75-104mins- exclusive of procedures): Not Applicable
ED Attending Note
-
Portions of this chart may have been created with voice recognition software.� Occasional wrong word or��sound alike� substitutions may have occurred due to the inherent limitations of voice recognition software.
Discharge Plan
Departure
Patient Disposition: Home (Routine Discharge)
Date of Disposition: 01/08/25
Time of Disposition: 12:30
Patient with high blood pressure during this ER visit?: Yes
Condition: Fair
Covid-19: Not Applicable
Discharge Problem:
Acute cephalic vein thrombosis
Instructions: BLOOD PRESSURE
Prescriptions:
No Action
levothyroxine 100 mcg Tablet
100 mcg PO DAILY
hydrochlorothiazide 25 mg Tablet
25 mg PO DAILY
cholecalciferol (vitamin D3) [Vitamin D3] 25 mcg (1,000 unit) Tablet
25 mcg PO DAILY
ibuprofen [Advil] 200 mg Tablet
600 mg PO Q6HPRN PRN (Reason: mild pain)
albuterol sulfate 90 mcg/actuation Hfa Aerosol Inhaler
2 puff INHALATION R Q6HPRN PRN (Reason: sob)
fenofibrate 160 mg Tablet
160 mg PO DAILY
budesonide-formoterol [Breyna] 160-4.5 mcg/actuation Hfa Aerosol Inhaler
2 inh INHALATION R BID
amoxicillin-pot clavulanate 875-125 mg tablet
1 tab PO Q12H Qty: 14 0RF
simethicone 80 mg Tablet,Chewable
80 mg PO QIDPRN PRN (Reason: gas/bloating) Qty: 30 0RF
Referrals:
Deshawn Milner PA [Family Provider, General]
Activity Restrictions/Additional Instructions:
As discussed , your ultrasound shows acute thrombosis of the left cephalic vein in your left arm. This does not need anticoagulation. You may also between ibuprofen and Tylenol for discomfort, apply warm compresses several times a day. Please
follow the family doctor in the next several days for reevaluation of symptoms.
return if any worsening of symptoms.
Interventions
Interventions:
*Risk Screen - Suicide Last Done: 01/08/25 08:46
*Neglect/Abuse Screening Last Done: 01/08/25 08:46
ED-Skin Assessment Last Done: 01/08/25 10:11
Discharge Date and Time
Print Language: HUNGARIAN
== END 2025-01-08 12:50 | disposition home or self-care (01) ==
LOC: EMR 08:25
PROVIDERS: EMERGENCY PHYSICIAN Student in an Organized Health Care Education/Training Program; FAMILY PHYSICIAN Physician Assistant Medical
DX: I82.612 Acute embolism and thrombosis of superficial veins of left upper extremity (principal); E03.9 Hypothyroidism, unspecified; E78.00 Pure hypercholesterolemia, unspecified; I10 Essential (primary) hypertension; J45.909 Unspecified asthma, uncomplicated
CPT/HCPCS: 99284; 93971

== ENCOUNTER 2025-01-14 23:26 | Inpatient (IN) | payer MEDICARE, OTHER, SELFPAY ==
[2025-01-14 18:18] LABS: % Basophils 0.6 % (0-2); % Eosinophils 1.2 % (0-6); % Immature Granulocytes 0.5 % (0-0.5); % Lymphocytes 8.4 % (20.5-51.1); % Monocytes 6.2 % (1.7-9.3); % Neutrophils 83.1 % (42.2-75.2); Absolute Basophils 0.1 10^3/uL (0-0.2); Absolute Eosinophils 0.1 10^3/uL (0-0.7); Absolute Immature Granulocytes 0.1 10^3/uL (0-0.05); Absolute Lymphocytes 0.9 10^3/uL (1.2-3.4); Absolute Monocytes 0.7 10^3/uL (0.1-0.6); Absolute Neutrophils 9.3 10^3/uL (1.4-6.5); Hematocrit 43.7 % (37.0-47.0); Hemoglobin 14.3 g/dL (12.0-16.0); Mean Corp Hgb Conc. 32.7 g/dL (33.0-37.0); Mean Corpuscular Hgb 28.6 pg (27.0-31.0); Mean Corpuscular Volume 87.4 fL (81.0-99.0); Mean Platelet Volume 9.2 fL (7.4-10.4); Nucleated Red Blood Cells % 0 %; Platelet Count 332 10^3/uL (130-400); Red Cell Dist. Width 14.2 % (11.5-14.5); White Blood Cell Count 11.2 10^3/uL (4.8-10.8)
[2025-01-14 18:38] LABS: ALT (SGPT) 13 U/L (0-35); AST (SGOT) 14 U/L (14-36); Albumin 3.8 g/dl (3.5-5.0); Alkaline Phosphatase 52 U/L (38-126); Blood Urea Nitrogen 12 mg/dl (7-17); Calcium 10.7 mg/dl (8.4-10.2); Carbon Dioxide 28 mmol/L (22-30); Chloride 106 mmol/L (98-107); Glucose 109 mg/dl (70-99); Lipase 28 U/L (23-300); Potassium 4.7 mmol/L (3.5-5.1); Sodium 138 mmol/L (135-145); Total Bilirubin 0.6 mg/dl (0.2-1.3); Total Protein 6.2 g/dl (6.3-8.2); eGFR > 60.00
[2025-01-14 19:37] VITALS: BP 149/94
[2025-01-14 19:56] VITALS: BMI 45.1
[2025-01-14 20:00] VITALS: BP 146/82
--- NOTE | 2025-01-14 20:26 | ED.GENMED ---
History of Present Illness
General
Chief Complaint: Abdominal Symptoms
Source: patient
Exam Limitations: none
Time Seen by Provider: 01/14/25 20:07
History of Present Illness
History of Present Illness:
See MDM
Past History
Past History
ED Past Medical History: Asthma, HTN, Hypercholesterolemia and Hypothyroidism
ED Past Surgical History: Tonsilectomy
Social History
Tobacco: Non-smoker
Alcohol: None
Drug: None
Personal:
Living: with family
Employment: Employed
Phy Exam
Physical Exam
Physical Exam:
See MDM
Course
Orders/Labs/Results
Orders:
Orders
01/14/25 18:12
Complete Blood Count/With Diff Urgent
Comprehensive Metabolic Panel Urgent
Lipase Urgent
01/14/25 20:10
CT Abd/pelvis W Iv Cont Urgent
Comment:
Reason For Exam: general abd pain, vomiting, diarrhea
0.9% Sodium Chloride 1000 ml [Nss] 1,000 ml IV BOLUS
Morphine Sulfate 4 mg IV NOW STA
01/14/25 20:26
Prochlorperazine [Compazine] 10 mg IV NOW STA
01/14/25 20:28
STOOL [C difficile Antigen & Toxins] Urgent
SARINA Source: Feces/Stool
Specimen Description:
Stool Culture Urgent
SARINA Source: Feces/Stool
Specimen Description:
01/14/25 22:22
Piperacillin/Tazo 3.375 Gram [Zosyn] 3.375 gram in 50 ml IV NOW
01/14/25 22:25
Piperacillin/Tazo 3.375 Gram [Zosyn] 3.375 gram in 50 ml IV NOW
01/14/25 22:34
Consult Gastroenterology [GASTROINTESTINAL CONSULT] Routine
Consulting Provider: Nigel Kauffman
Was physician already notified: Yes
Abnormal Lab Results
01/14/25
18:12
WBC 11.2 H 10^3/uL
(4.8-10.8)
MCHC 32.7 L g/dL
(33.0-37.0)
Abs Immat Gran (auto) 0.1 H 10^3/uL
(0-0.05)
Absolute Neuts (auto) 9.3 H 10^3/uL
(1.4-6.5)
Absolute Lymphs (auto) 0.9 L 10^3/uL
(1.2-3.4)
Absolute Monos (auto) 0.7 H 10^3/uL
(0.1-0.6)
Neutrophils % 83.1 H %
(42.2-75.2)
Lymphocytes % 8.4 L %
(20.5-51.1)
Glucose 109 H mg/dl
(70-99)
Calcium 10.7 H mg/dl
(8.4-10.2)
Total Protein 6.2 L g/dl
(6.3-8.2)
01/14/25 18:12
01/14/25 18:12
Vital Signs
Initial and Last Documented VS:
Initial Vital Signs
Temp Pulse Resp Pulse Ox
98 F 63 18 98
01/14/25 18:00 01/14/25 18:00 01/14/25 18:00 01/14/25 18:00
Last Documented Vital Signs
Temp Pulse Resp BP Pulse Ox
98 F 60 18 146/82 97
01/14/25 18:00 01/14/25 21:10 01/14/25 21:10 01/14/25 20:00 01/14/25 22:07
MDM/Problems Addressed
Differential Diagnosis Includes:
HPI and MDM Narrative:
69-year-old female presenting with recurrent nausea, vomiting and diarrhea. He was admitted 2 weeks ago for similar episode and diagnosed with enteritis. She completed a 10-day course of Augmentin. Patient states his did improve with antibiotics
but they have returned. She is now having trouble food or water down. She is not complaining of worsening abdominal pain. On my exam, patient has mild generalized tenderness. There is no rebound. Given the worsening pain and persistent
symptoms, will repeat CT scan. Will give IV fluids and provide pain medicine. Given her inability tolerate p.o., patient will likely require admission
Physical exam
General: Weak and fatigued
HEENT: protecting airway. Dry mucous membranes
Neck: appears supple
CV: No evidence of cyanosis
Resp: No accessory muscle use
Abd: Non-distended. Generalized abdominal tenderness without rebound
Extremities: No deformities
Neuro: alert
Psych: Normal affect
Skin: Intact
Problems Addressed including Acute and Chronic Conditions affecting care:
1. Nausea, vomiting, diarrhea and abdominal pain
Acuity: acute
Prognosis: stable
Details: Will repeat CT scan. Will obtain stool studies
2. Dehydration
Acuity: acute
Prognosis: stable
Details: Will give IV fluids
Updates
Radiology called indicating a few ulcerations in the small bowel that have contained microperforation. Will start antibiotics. On reassessment, pain is controlled. Case discussed with admitting team and we discussed looping in GI. GI made aware
Differential Diagnosis (but not limited to): Enteritis, colitis, C. difficile
Testing considered: Right upper quadrant ultrasound but pain is more vague than localized
Drug therapy (if applicable): OTC meds, please see d/c instruction regarding Rx drugs
Amount and/or Complexity of Data Reviewed
Clinical info obtained from: Patient
External data reviewed: Recent CT showing enteritis
Labs I independently reviewed (but not limited to): Mild leukocytosis
Radiology: The CT scan was personally and independently reviewed. In addition, official CT report reviewed.
Pulse Ox: not hypoxic
EKG independently reviewed: N/A
Forensic Analyst: N/A
Critical Care: N/A
Risk of Complication:
Social Determinants of health: Good social support
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
Escalation of Care includes Admit/Obs: Given the concern for microperforation, will admit
Occasional wrong word or 'sound a like' substitutions may have occurred due to the inherent limitations of voice recognition software. Read the chart carefully and recognize, using context, where substitutions have occurred.
*Critical Care Note
Total Time (30-74mins, 75-104mins- exclusive of procedures): Not Applicable
ED Attending Note
-
Portions of this chart may have been created with voice recognition software.� Occasional wrong word or��sound alike� substitutions may have occurred due to the inherent limitations of voice recognition software.
Discharge Plan
Departure
Patient Disposition: Admit
Date of Disposition: 01/14/25
Time of Disposition: 22:36
Admit to: Med/Surg
Presentation/result/management discussed w/ accepting MD/DO: Hospitalist
Discharge Problem:
Enteritis, Small bowel perforation
Prescriptions:
No Action
levothyroxine 100 mcg Tablet
100 mcg PO DAILY
hydrochlorothiazide 25 mg Tablet
25 mg PO DAILY
cholecalciferol (vitamin D3) [Vitamin D3] 25 mcg (1,000 unit) Tablet
25 mcg PO DAILY
ibuprofen [Advil] 200 mg Tablet
600 mg PO Q6HPRN PRN (Reason: mild pain)
albuterol sulfate 90 mcg/actuation Hfa Aerosol Inhaler
2 puff INHALATION R Q6HPRN PRN (Reason: sob)
fenofibrate 160 mg Tablet
160 mg PO DAILY
budesonide-formoterol [Symbicort] 160-4.5 mcg/actuation Hfa Aerosol Inhaler
2 puff INHALATION BID
Referrals:
Deshawn Milner PA [Family Provider, General]
Interventions
Interventions:
*Risk Screen - Suicide Last Done: 01/14/25 18:00
*General Assessment Last Done: 01/14/25 18:00
*Neglect/Abuse Screening Last Done: 01/14/25 18:00
*ED- Fall Risk Assessment Last Done: 01/14/25 18:00
*ED COVID-19 Vaccine History Last Done: 01/14/25 18:00
IM-Czlbup-Rmwpcavtaq Assessment Last Done: 01/14/25 19:58
Discharge Date and Time
Print Language: NEPALI
[2025-01-14] MEDS: COMPAZINE 10 MG IV (20:33)
[2025-01-14] MEDS: NSS 1000 IV (20:33)
[2025-01-14] MEDS: MORPHINE SULFATE 4 MG IV (20:34)
--- NOTE | 2025-01-14 22:37 | HPS.HSE ---
Family Physician
-
Family Physician: GILL Cook
Chief Complaint
-
abdominal symptoms
History of Present Illness
This is a 69-year-old with past medical history significant for hypertension, hypothyroid, obesity, asthma and a recent admission for enteritis who presents to the emergency department with worsened abdominal pain about 4 days ago.
Patient reported that she was discharged on December 29. At the time of discharge and upon completing antibiotic course she started having formed stools. However 3 days afterwards she started having loose stools again. The loose stools persisted until
about 4 days ago when she now has watery diarrhea. She denies seeing any blood. She denies seeing any mucus. She reported epigastric and periumbilical abdominal pain. She reports nausea and associated nonbloody and nonbilious emesis. She has
some dry heaving. She denies feeling dizzy or lightheaded. She denies any new medications. No melena.
Prior to her admission in in December she denies any prior history of recurrent bowel symptoms including recurrent episodes of diarrhea, mucus containing stools, bloody stools abdominal pain nausea or vomiting. She denies any intra-abdominal surgeries.
She denies any urinary symptoms.
In the Emergency Department patient remains afebrile with a temp of 98, blood pressure was 140/80 with a pulse of 60 she is satting 97% on room air.
To the point 11.2, hemoglobin of 14.3 and a platelet of 332. Electrolytes are within normal limits. BUN and creatinine are normal.
Medical History
Past Medical History
Past Medical History: Reports Other
Additional Past Medical History:
Essential Hypertension
Hyperlipidemia
Hypothyroidism
Asthma
Past Surgical History: Reports Other
Additional Past Surgical History:
Uterine Artery Embolization
Tonsillectomy
Left Breast Lipoma Removal
Social History
Tobacco: Non-smoker
Alcohol: Occasional
Drug: None
Family History
Family History: Not pertinent
Allergies / Home Medications
Allergies reflects when Allergies were last updated in [employer].
Home Medications with original date entered in [employer]
Allergy/Medication List:
Allergies
Allergy/AdvReac Type Severity Reaction Status Date / Time
acetaminophen Allergy Unknown Verified 12/26/24 08:23
codeine Allergy Unknown Verified 12/26/24 08:23
fentanyl Allergy Unknown Verified 12/26/24 08:23
ondansetron Allergy Unknown Verified 12/26/24 08:23
oxycodone Allergy Unknown Verified 12/26/24 08:23
silver sulfadiazine Allergy Unknown Verified 12/26/24 08:23
Sulfa (Sulfonamide Allergy Unknown Verified 12/26/24 08:23
Antibiotics)
trimethobenzamide Allergy Unknown Verified 12/26/24 08:23
Home Medications
cholecalciferol (vitamin D3) 25 mcg (1,000 unit) tablet (Vitamin D3) 25 mcg PO DAILY 05/03/22
hydrochlorothiazide 25 mg tablet 25 mg PO DAILY 05/03/22
ibuprofen 200 mg tablet (Advil) 600 mg PO Q6HPRN PRN mild pain 05/03/22
levothyroxine 100 mcg tablet 100 mcg PO DAILY 05/03/22
albuterol sulfate 90 mcg/actuation aerosol inhaler 2 puff inhalation R Q6HPRN PRN sob 12/26/24
budesonide-formoterol HFA 160 mcg-4.5 mcg/actuation aerosol inhaler (Breyna) 2 inh inhalation R BID 12/26/24
fenofibrate 160 mg tablet 160 mg PO DAILY 12/26/24
Review of Systems
-
History Source: Patient
A 12 point ROS was completed and negative except as noted: Yes
Constitutional: Denies Fever or Chills
Respiratory: Denies Cough or Trouble Breathing
Cardiac: Denies Chest Pain or Palpitations
Abdomen/GI: Reports Abdominal Pain, Vomiting and Diarrhea
: Reports No Symptoms
Musculoskeletal: Reports No Symptoms
Skin: Reports No Symptoms
Neurological: Reports No Symptoms
Endocrine: Reports No Symptoms
Hematologic/Lymphatic: Reports No Symptoms
Psych: Reports No Symptoms
Physical Exam
Vital Signs
Vital Signs
Temp Pulse Resp BP Pulse Ox
98 F 60 18 146/82 97
01/14/25 18:00 01/14/25 21:10 01/14/25 21:10 01/14/25 20:00 01/14/25 22:07
Physical Exam
General: Comfortable, Conversant and Morbidly Obese
HEENT: NormoCephalic, Anicteric and Atraumatic
Respiratory: Clear and Non Labored Respirations; No Wheezes
Cardiac: S1/S2 and Regular Rhythm; No Tachycardia
GI: Soft, Non Tender and Normal Bowel Sounds
Rectal: Deferred by Provider
Musculoskeletal: No Clubbing and No Cyanosis
Skin: Warm and Dry
Neuro: Awake, Alert, Oriented and Nonfocal/grossly intact
Psych: Calm
Laboratory Results
-
01/14/25 18:12
01/14/25 18:12
Laboratory Results
Total Bilirubin 0.6 mg/dl (0.2-1.3) 01/14/25 18:12
AST 14 U/L (14-36) 01/14/25 18:12
ALT 13 U/L (0-35) 01/14/25 18:12
Alkaline Phosphatase 52 U/L (38-126) 01/14/25 18:12
Lipase 28 U/L (23-300) 01/14/25 18:12
Data Reviewed
-
CT Scan: Report Reviewed by me
Lab Data: Labs Reviewed by me
Old Records: Reviewed
Impression/Plan
-
IMPRESSION:
69 y.o female with abd. pain, vomiting and diarrhea (3 -4 watery stools / day) x 4 days. Recent admission and d/c on 12/29 for gastroenteritis that was treated with abx + probiotics. Improved transiently with recurrence of symptoms 3 days after
completion of abx. Here she is HD stable. Afebrile and without leukocytosis. Exam shows slight abdominal distension, no guarding or rebound. Tender to deep palpation. abs unremarkable. CT a/p shows recurrent enteritis (duodenal) and
radiologist believes there are 3 areas of ulcerations in the gastric antrum, distal duodenum and duodenal-jejunal junction wich are either contained perforated ulcers with small abscess collection.
PLAN:
1. gastroduodenitis and duodenal ulcers - Given the location of the enteritis/inflammation as well as the finding of multiple areas of perforation from the gastric antrum down to the distal duodenum suspect peptic ulcer disease as etiology of
symptoms with associated inflammatory changes causing the diarrheal symptoms. No known history of IBD. She denies prior history of peptic ulcer disease. Denies history of GI bleed. No current melena. HD stable and Hgb WNL.
- admit to med/surg
- stool cultures/cdiff/wbc
- inflammatory panel, fecal calprotectin
- NPO for now
- IV zosyn for now
- PPi 80mg now, 40mg iv bid
- maintenance fluids
- no nsaids
- GI consultation for severe peptic ulcer disease with microperforations and impending perforations
DVT PPX - SCDs for now
Code status - Full Code
[2025-01-14] MEDS: ZOSYN 50 IV (22:52)
[2025-01-14] MEDS: PROTONIX IV 80 MG IV (23:16)
[2025-01-14] MEDS: NSS (PRESERVATIVE FREE) 20 ML IV (23:16)
[2025-01-15 00:08] VITALS: BMI 46.0
[2025-01-15 00:09] VITALS: BP 152/74
--- NOTE | 2025-01-15 00:30 | PTCARENOTE ---
Received patient from ED. Patient AAOx3, she ambulated to the bedside with minimum assistance. Patient assessed, VSS. She denies any pain or nausea at this time having been medicated in the ED. IVF infusing. Patient oriented to the unit. Patient
verbalized an understanding to ring for transfers as needed. Call rodríguez in reach.
[2025-01-15] MEDS: D5LR 1000 IV ×2 (00:33→13:50)
[2025-01-15] MEDS: ZOSYN 50 IV ×4 (05:36→23:46)
[2025-01-15] MEDS: FLUSH (NSS) 2 FLUSH IV ×3 (05:37→23:47)
[2025-01-15] MEDS: SYNTHROID 100 MCG PO (05:45)
[2025-01-15 06:23] LABS: Hemoglobin 12.4 g/dL (12.0-16.0); Mean Corp Hgb Conc. 32.6 g/dL (33.0-37.0); Mean Corpuscular Hgb 28.8 pg (27.0-31.0); Mean Corpuscular Volume 88.2 fL (81.0-99.0); Mean Platelet Volume 9.4 fL (7.4-10.4); Platelet Count 258 10^3/uL (130-400); Red Blood Cell Count 4.31 10^6/uL (4.20-5.40); White Blood Cell Count 8.3 10^3/uL (4.8-10.8)
[2025-01-15 06:41] LABS: Blood Urea Nitrogen 11 mg/dl (7-17); Calcium 9.4 mg/dl (8.4-10.2); Carbon Dioxide 23 mmol/L (22-30); Chloride 110 mmol/L (98-107); Estimated Creatinine Clearance > 125 ml/min; Glucose 89 mg/dl (70-99); Magnesium 1.9 mg/dl (1.6-2.3); Potassium 4.4 mmol/L (3.5-5.1); Sodium 137 mmol/L (135-145); eGFR > 60.00
[2025-01-15 06:43] LABS: Erythrocyte Sed Rate 6 mm/hour (0-20)
[2025-01-15 07:10] VITALS: BP 131/65
[2025-01-15] MEDS: SYMBICORT 160/4.5 MCG INHALER 2 PUFF INH ×2 (07:40→17:57)
[2025-01-15] MEDS: TRICOR 145 MG PO (09:02)
[2025-01-15] MEDS: PROTONIX IV 40 MG IV ×2 (09:02→20:14)
[2025-01-15] MEDS: NSS (PRESERVATIVE FREE) 10 ML IV ×2 (09:02→20:15)
--- NOTE | 2025-01-15 09:16 | W.PN.HOSP.TC ---
Today's Communication/Plan
-
IV PPI. Antibiotics. Surgery consult.
Assessment / Plan
Assessment / Plan
Physical exam:
General: Acutely ill
HEENT: Normocephalic, Atraumatic and dry mucous Membranes
Respiratory: Clear to Auscultation; Negative Wheezes, Rales or Rhonchi
Cardiac: Regular Rhythm and S1/S2
GI: Soft, tender but no signs of peritonitis and Nondistended
Musculoskeletal: No Clubbing, No Cyanosis and No Edema
Neuro: Awake, Alert and Oriented, no neurological deficit
Psych: Calm
A/P:
Peptic ulcer disease with concerns of gastroduodenal perforation:
Keep strict n.p.o.
IV fluid
Keep Protonix IV twice a day
GI consulted
Requested general surgery consultation
Plan for upper GI series
Hypertension:
Will use IV hydralazine as needed
Hyperlipidemia:
Hold fenofibrate
Hypothyroidism:
Hold thyroid replacement
Asthma:
Continue bronchodilators as needed
DVT prophylaxis:
SCD
CODE STATUS:
Full code
Total time spent on today's encounter was 52 minutes which included time spent in counseling the patient/family regarding diagnosis and treatment plan as listed above, goals of care, and symptom management. Case was discussed with nursing staff,
specialists, and care coordinators/case management. All labs and imaging personally reviewed by me. Remainder the time spent in detailed review of previous records, lab data, imaging, and other medical provider documentation.
Anticipated Discharge: > 48 hours
Subjective/Interval History
-
Date of Service: January 15, 2025
Patient has less abdominal pain and less nausea. No vomiting. Afebrile.
Objective Data
-
Labs:
Laboratory Results
01/15/25
05:35
WBC 8.3
Hgb 12.4
Hct 38.0
Plt Count 258 D
Sodium 137
Potassium 4.4
Chloride 110 H
Carbon Dioxide 23
BUN 11
Creatinine 0.6
Glucose 89
Calcium 9.4
Vital Signs:
Vital Signs
Temp Pulse Resp BP Pulse Ox
97.4 F 52 16 131/65 96
01/15/25 07:10 01/15/25 07:47 01/15/25 07:47 01/15/25 07:10 01/15/25 07:47
I&O
01/14/25 01/15/25 01/16/25
06:59 06:59 06:59
Intake Total 1630 / 1630
Balance 1630 / 1630
--- NOTE | 2025-01-15 12:54 | CON.GI ---
Consultation
-
Date/Time Consultation Requested: 01/14/25 at 10pm
Date/Time Consultation Performed: 01/15/25 at 6am
Requesting Provider: Kt
Performing Provider: Jamari
Reason for Consultation: abd pain
Medical History
Chief Complaint / HPI
Chief Complaint: abd pain
History of Present Illness:
Pt is a 69 y/o woman with a pmh of obesity, htn, asthma who was admitted in December for enteritis and was discharged on antibiotics. She said her stool started to thicken initially and then had diarrhea again. She then had vomiting and epigastric
pain. She represented to the ER. She denies nsaids, hx of GI issues, no family hx of IBD or GI issues. She did have a colonoscopy 5 yrs ago but not an egd. No fevers. She did have a CT on her initial hospitalization that showed proximal small
bowel jejunal thickening and wall thickening with reactive lymphadenopathy. yesterday CT showed similar thickening of the distal duodenum, prox jejunum with a small microperforation, fluid collection adjacent to this as well as outside antrum. She
is now asymptomatic. She has negative stool studies
Past Medical History
Past Medical History: Asthma, HTN, Hypercholesterolemia and Hypothyroidism
Past Surgical History: Other (uterine artery embolization, tonsillectomy)
Social History
Tobacco: Non-Smoker
Alcohol: Occasional
Family History
Family History: Reviewed & Not Pertinent
Allergies / Home Medications
Allergy/AdvReac Type Severity Reaction Status Date / Time
acetaminophen Allergy Vomiting Verified 01/14/25 18:00
codeine Allergy Vomiting Verified 01/14/25 18:00
fentanyl Allergy Unknown Verified 01/14/25 18:00
ondansetron Allergy Unknown Verified 01/14/25 18:00
oxycodone Allergy Vomiting Verified 01/14/25 18:00
silver sulfadiazine Allergy BURN SKIN Verified 01/14/25 18:00
Sulfa (Sulfonamide Allergy Unknown Verified 01/14/25 18:00
Antibiotics)
trimethobenzamide Allergy LOCAL Verified 01/14/25 18:00
REACTION'GOOSE
EGG'
�Medication �Instructions �Recorded
cholecalciferol (vitamin D3) 25 25 mcg PO DAILY Supplement 05/03/22
mcg (1,000 unit) tablet (Vitamin
D3)
hydrochlorothiazide 25 mg tablet 25 mg PO DAILY Fluid 05/03/22
Retention/Swelling
ibuprofen 200 mg tablet (Advil) 600 mg PO Q6HPRN PRN mild pain 05/03/22
levothyroxine 100 mcg tablet 100 mcg PO DAILY Thyroid 05/03/22
albuterol sulfate 90 mcg/actuation 2 puff inhalation R Q6HPRN PRN sob 12/26/24
aerosol inhaler
fenofibrate 160 mg tablet 160 mg PO DAILY High Cholesterol 12/26/24
budesonide-formoterol HFA 160 2 puff inhalation BID 01/14/25
mcg-4.5 mcg/actuation aerosol Lung/Breathing Issues
inhaler (Symbicort)
Review of Systems
-
All other systems: A 12 pt ROS was Negative except as stated above in HPI
Vital Signs
Temp Pulse Resp BP Pulse Ox
97.4 F 52 16 131/65 98
01/15/25 07:10 01/15/25 07:47 01/15/25 07:47 01/15/25 07:10 01/15/25 08:00
Physical Exam
Exam
General: No Apparent Distress
HEENT: Anicteric
Cardiac: S1/S2
GI: Soft and Non Tender
Musculoskeletal: No Clubbing
Neuro: Awake, Alert and Oriented
Psych: Calm
Results
WBC 8.3 10^3/uL (4.8-10.8) 01/15/25 05:35
Hgb 12.4 g/dL (12.0-16.0) 01/15/25 05:35
Hct 38.0 % (37.0-47.0) 01/15/25 05:35
MCV 88.2 fL (81.0-99.0) 01/15/25 05:35
Plt Count 258 10^3/uL (130-400) D 01/15/25 05:35
Absolute Neuts (auto) 9.3 10^3/uL (1.4-6.5) H 01/14/25 18:12
Sodium 137 mmol/L (135-145) 01/15/25 05:35
Potassium 4.4 mmol/L (3.5-5.1) 01/15/25 05:35
Chloride 110 mmol/L (98-107) H 01/15/25 05:35
Carbon Dioxide 23 mmol/L (22-30) 01/15/25 05:35
BUN 11 mg/dl (7-17) 01/15/25 05:35
Creatinine 0.6 mg/dL (0.6-1.0) 01/15/25 05:35
Calcium 9.4 mg/dl (8.4-10.2) 01/15/25 05:35
Total Bilirubin 0.6 mg/dl (0.2-1.3) 01/14/25 18:12
AST 14 U/L (14-36) 01/14/25 18:12
ALT 13 U/L (0-35) 01/14/25 18:12
Alkaline Phosphatase 52 U/L (38-126) 01/14/25 18:12
Lipase 28 U/L (23-300) 01/14/25 18:12
Assessment / Plan
-
Pt is a 69 y/o woman with a hx of abdominal pain, diarrhea, vomiting dx as enteritis but does appear now to be more chronic, is this crohns or an underlying malignancy or less likely PUD (unusual location). for now:
1. check fecal calpro, crp, sed rate, gastrin level.
2. follow wbc (now normal)
3. surgical consult
4. will need further imaging prior to EGD, dr. del valle agrees with UGI/SBFT and requests omni contrast
5. NPO
6. enteroscopy if no ongoing perforation
7. stool studies have thus far been negative
d/w Kt Mustafa via TT
-
-
Thank you for consultation and allowing me to participate in the patient's care. Please call the [facility] physician during the after hours with any questions or concerns.
--- NOTE | 2025-01-15 13:26 | CM ---
Initial Assessment was completed with pt at bedside.
Pt is a 69yr old female admitted for enteritis.
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
Pt is indep at baseline and working.
Pt has no DME and hx of VN/SNF.
Pt was previously admitted in December and dc'd to home with no needs.
PCP; Deshawn Milner
Pharm; aLcy Diaz Wales
PLAN; Home with no anticipated needs
--- NOTE | 2025-01-15 13:41 | CON.GS ---
Addendum entered and electronically signed by Len Barlow MD 01/17/25 08:50:
I saw and examined the patient.
The [employer] Making [employer] Operator's note was reviewed and I agree with the note.
Comment: LATE ENTRY from 01/15
Comfortable, non-toxic appearing, benign abd exam, CT suggestive of contained perforated duo ulcer. Plan for UGI. Max dose PPI in the meantime, empiric abx, NPO.
Original Note:
Consultation
-
Date/Time Consultation Requested: 01/15/25 1051
Date/Time Consultation Performed: 01/15/25 1315
Performing Provider: Kim Barlow
Reason for Consultation: GI perforation eval
Medical History
-
Chief Complaint: indigestion/belching
History of Present Illness:
Ms Shirley is a 69 yo female with a recent admission for gastroenteritis (12/26-12/29) who presented through the ED yesterday with 4 days of upper abdominal pain which was intermittent with associated nausea. She had intermittent diarrhea after her
recent admission but was passing formed stools for the past few days. She denies hematemesis or hematochezia. She denies fevers or chills. She notes she currently has no pain or nausea. She notes that several years ago, she had an UGI study for
symptoms of nausea and dry heaving and was told that she had delayed gastric emptying at that time. She is a nonsmoker, drink ETOH rarely but does take NSAIDs about once a or twice a week and reports a very high stress job.
Past Medical History
Past Medical History: Asthma, HTN, Hypercholesterolemia, Hypothyroidism and Other (morbid obesity)
Past Surgical History: Gynecological (uterine artery embolization)
Social History
Tobacco: Non-Smoker
Alcohol: Occasional (rare)
Family History
Family History: Reviewed & Not Pertinent
Allergies / Home Medications
Allergy/AdvReac Type Severity Reaction Status Date / Time
acetaminophen Allergy Vomiting Verified 01/14/25 18:00
codeine Allergy Vomiting Verified 01/14/25 18:00
fentanyl Allergy Unknown Verified 01/14/25 18:00
ondansetron Allergy Unknown Verified 01/14/25 18:00
oxycodone Allergy Vomiting Verified 01/14/25 18:00
silver sulfadiazine Allergy BURN SKIN Verified 01/14/25 18:00
Sulfa (Sulfonamide Allergy Unknown Verified 01/14/25 18:00
Antibiotics)
trimethobenzamide Allergy LOCAL Verified 01/14/25 18:00
REACTION'GOOSE
EGG'
�Medication �Instructions �Recorded �Confirmed �Type
cholecalciferol (vitamin D3) 25 25 mcg PO DAILY Supplement 05/03/22 01/14/25 History
mcg (1,000 unit) tablet (Vitamin
D3)
hydrochlorothiazide 25 mg tablet 25 mg PO DAILY Fluid 05/03/22 01/14/25 History
Retention/Swelling
ibuprofen 200 mg tablet (Advil) 600 mg PO Q6HPRN PRN mild pain 05/03/22 01/14/25 History
levothyroxine 100 mcg tablet 100 mcg PO DAILY Thyroid 05/03/22 01/14/25 History
albuterol sulfate 90 mcg/actuation 2 puff inhalation R Q6HPRN PRN sob 12/26/24 01/14/25 History
aerosol inhaler
fenofibrate 160 mg tablet 160 mg PO DAILY High Cholesterol 12/26/24 01/14/25 History
budesonide-formoterol HFA 160 2 puff inhalation BID 01/14/25 01/14/25 History
mcg-4.5 mcg/actuation aerosol Lung/Breathing Issues
inhaler (Symbicort)
Review of Systems
-
History Source: Patient
All other systems: Negative unless noted
A 10 point review of systems was completed, and was negative except as per HPI.
Physical Exam
Vital Signs
Temp Pulse Resp BP Pulse Ox
97.4 F 52 16 131/65 98
01/15/25 07:10 01/15/25 07:47 01/15/25 07:47 01/15/25 07:10 01/15/25 08:00
01/14/25 01/15/25 01/16/25
06:59 06:59 06:59
Actual Weight 141.113 kg
Body Mass Index (BMI) 46.0
Lab Results
01/15/25 05:35
01/15/25 05:35
WBC 8.3 10^3/uL (4.8-10.8) 01/15/25 05:35
Hgb 12.4 g/dL (12.0-16.0) 01/15/25 05:35
Hct 38.0 % (37.0-47.0) 01/15/25 05:35
Plt Count 258 10^3/uL (130-400) D 01/15/25 05:35
Abs Immat Gran (auto) 0.1 10^3/uL (0-0.05) H 01/14/25 18:12
Neutrophils % 83.1 % (42.2-75.2) H 01/14/25 18:12
Physical Exam
General: Well Developed and Well Nourished
HEENT: Moist Mucous Membranes
Respiratory: Non Labored Respirations
GI: Soft, Non Tender, Non Distended and Obese
Skin: Warm
Neuro: Awake, Alert and AO x 3
Psych: Calm
Data Reviewed
-
CT Scan: Image Personally Visualized and interpreted, Report Reviewed by me, Discussed with Physician and Discussed with Patient
Labs: Labs Reviewed by me, Discussed with Physician, Discussed with Patient and Discussed with Family
Old Records: Reviewed
Assessment / Plan
-
69 yo female with a recent h/o admission for enteritis about 3 weeks ago presenting for 4 days of epigastric pain with indigestion, belching and nausea. On her initial presentation, CT imaging of the abd and pelvis on 12/26/24 demonstrated some small
bowel wall thickening near the proximal jejunum. On CT imaging from 01/14/25 this bowel wall thickening has progressed and there is concern for possible contained localized perforation at the gastric antrum vs the adjacent duodenum near the proximal
jejunum with inflammatory changes of the mesentery noted. ?PUD in setting of NSAID usage and recent hospitalization for enteritis with full GI work up pending to r/o other etiologies including IBD. No hematemesis or hematochezia/tarry stools.
Pain and nausea currently resolved. Exam is benign without tenderness, distention, rebound, rigidity or guarding. She is afebrile with stable vital signs. She has no leukocytosis. H/H stable from prior.
Plan:
NPO except ice chips
Will check UGI series in AM to further evaluate
Hold on EGD for now
Continue IV PPI BID
IVF while NPO
Further surgical recs pending UGI study
[2025-01-15 14:28] VITALS: BMI 46.0
[2025-01-15 15:25] VITALS: BP 143/71
[2025-01-15 23:04] VITALS: BP 120/52
[2025-01-16] MEDS: D5LR 1000 IV ×2 (03:57→14:56)
[2025-01-16] MEDS: ZOSYN 50 IV ×4 (05:44→23:40)
[2025-01-16] MEDS: FLUSH (NSS) 2 FLUSH IV (05:45)
[2025-01-16 06:58] LABS: Hematocrit 36.8 % (37.0-47.0); Hemoglobin 11.7 g/dL (12.0-16.0); Mean Corp Hgb Conc. 31.8 g/dL (33.0-37.0); Mean Corpuscular Hgb 28.3 pg (27.0-31.0); Mean Corpuscular Volume 88.9 fL (81.0-99.0); Mean Platelet Volume 9.7 fL (7.4-10.4); Platelet Count 269 10^3/uL (130-400); Red Blood Cell Count 4.14 10^6/uL (4.20-5.40); Red Cell Dist. Width 14.2 % (11.5-14.5); White Blood Cell Count 5.8 10^3/uL (4.8-10.8)
[2025-01-16 07:00] VITALS: BP 137/81
[2025-01-16 07:18] LABS: IgA 137 mg/dl (70-400)
--- NOTE | 2025-01-16 07:18 | W.PN.GS2 ---
Addendum entered and electronically signed by Carroll Joyce MD 01/16/25 12:13:
I saw and examined the patient independently.
The resident's documentation was reviewed and I agree with the note, assessment and plan except where noted below.
Comment: This is a 69-year-old female with a history of morbid obesity, lymphedema, asthma with recent admission for enteritis who presents with abdominal pain and nausea vomiting found to have what appear to be duodenal microperforations with
associated small collections in the 1st and 4th parts of the duodenum.
Upper GI today reviewed no active leak.
GI following, if no further procedure planned today, okay for clears and can advance to fulls for 1 week with an emphasis on high-protein diet/shakes. Will defer to GI regarding timing of diet advancement and endoscopy/biopsy.
No further surgical intervention warranted, we will follow peripherally.
Please call with any questions or concerns. Patient can follow-up with me as an outpatient.
Original Note:
Today's Communication / Plan
-
Upper GI series
Assessment / Plan
-
Patient is a 69-year-old female, history of chronic lymphedema, asthma and enteritis.Recently discharged after being admitted for enteritis from 12/26-12/29.Presented with upper abdominal pain associated with nausea and vomiting.CT abdomen
consistent with small bowel wall thickening and microperforations at the gastric pylorus,first part and fourth part of duodenum. Admitted for workup and management of microperforations.
Currently asymptomatic,no pain or nausea
Exam benign.Abdomen soft,non tender with normal bowel sounds
On lab review
No leukocytosis
Hgb stable around 12
Normal serum electrolytes and liver enzymes
Celiac panel pending-ordered by GI
Gastrin level pending
Reviewed with the patient the pathophysiology of her disease process.Explained the course of events and answered all questions and concerns.Patient due for an upper GI series today.Depending on if her microperforation is persisting would proceed
with bowel rest and let the perforation heal.Once the perforation heals would schedule an enteroscopy/biospy.
Patient demonstrated understanding
Screen for tumor markers
DVT prophylaxis-SCDs
On PPI
Abx-Zosyn
continue IV fluids
Optimize pain management and as needed antiemetics
Subjective Data
-
Date of Service: January 16, 2025
Denies any pain, nausea, vomiting since she came to the hospital
Denies any diarrhea in the last 24 hours
Currently n.p.o. with sips of water
Objective Data
-
Intake and Output
01/15/25 01/16/25 01/17/25
06:59 06:59 06:59
Intake Total 1630 / 1630 50 / 50
Balance 1630 / 1630 50 / 50
Intake:
Oral fluids 30 / 30 0 / 0
IV fluids (Total) 1500 / 1500
nss 1000 / 1000
IV piggybacks 100 / 100 50 / 50
nss 50 / 50
Other:
Number of approximated MODERATE 1 2
amounts of urine
Number of approximated LARGE 2
amounts of urine
Vital Signs
Temp Pulse Resp BP Pulse Ox
98.0 F 50 16 120/52 98
01/15/25 23:04 01/15/25 23:04 01/15/25 23:04 01/15/25 23:04 01/15/25 23:04
Lab Results
01/16/25 06:08
Calcium 9.4 mg/dl (8.4-10.2) 01/15/25 05:35
Magnesium 1.9 mg/dl (1.6-2.3) 01/15/25 05:35
Total Bilirubin 0.6 mg/dl (0.2-1.3) 01/14/25 18:12
AST 14 U/L (14-36) 01/14/25 18:12
ALT 13 U/L (0-35) 01/14/25 18:12
Alkaline Phosphatase 52 U/L (38-126) 01/14/25 18:12
Total Protein 6.2 g/dl (6.3-8.2) L 01/14/25 18:12
Albumin 3.8 g/dl (3.5-5.0) 01/14/25 18:12
Physical Exam
-
No apparent distress, BMI 45.9
Moist mucous membranes
Chest clear to auscultation bilaterally, no wheezes or rails
Abdomen soft, obese, nontender and bowel sounds normal
Bilateral lower leg edema
Bilateral stasis venous dermatitis
Patient has a bowers catheter: No
Patient has a central line: No
[2025-01-16 07:23] LABS: Blood Urea Nitrogen 9 mg/dl (7-17); Calcium 9.7 mg/dl (8.4-10.2); Carbon Dioxide 27 mmol/L (22-30); Chloride 109 mmol/L (98-107); Estimated Creatinine Clearance 104 ml/min; Glucose 94 mg/dl (70-99); Potassium 4.1 mmol/L (3.5-5.1); Sodium 140 mmol/L (135-145); eGFR > 60.00
[2025-01-16] MEDS: SYMBICORT 160/4.5 MCG INHALER 2 PUFF INH ×2 (07:34→20:02)
--- NOTE | 2025-01-16 08:04 | W.PN.GI.CBS2 ---
Today's Communication / Plan
-
ugi/sbft
Assessment / Plan
-
Pt is a 69 y/o woman with a hx of abdominal pain, diarrhea, vomiting dx as enteritis but does appear now to be more chronic, is this crohns or an underlying malignancy or less likely PUD (unusual location). for now:
1. for ugi/sbft
2. if negative for extravasation needs enteroscopy
3. surgery following
4. celiac panel, gastrin ordered
5. npo for now
Subjective
Subjective
Date of Service: January 16, 2025
Pt w/o vomiting or abdominal pain
Objective
Data Reviewed
Laboratory Data:
Laboratory Results
01/16/25 06:08
01/16/25 06:07
Laboratory Results
Magnesium 1.9 mg/dl (1.6-2.3) 01/15/25 05:35
Total Bilirubin 0.6 mg/dl (0.2-1.3) 01/14/25 18:12
AST 14 U/L (14-36) 01/14/25 18:12
ALT 13 U/L (0-35) 01/14/25 18:12
Alkaline Phosphatase 52 U/L (38-126) 01/14/25 18:12
Lipase 28 U/L (23-300) 01/14/25 18:12
Vital Signs and I&O:
Vital Signs
Temp Pulse Resp BP Pulse Ox
98.0 F 54 16 120/52 98
01/15/25 23:04 01/16/25 07:38 01/16/25 07:38 01/15/25 23:04 01/16/25 07:38
I&O
01/15/25 01/16/25 01/17/25
06:59 06:59 06:59
Intake Total 1630 / 1630 50 / 50 825 / 825
Balance 1630 / 1630 50 / 50 825 / 825
Physical Exam
Physical Exam
GI: Soft, Non Distended and Non Tender
[2025-01-16 08:18] LABS: Erythrocyte Sed Rate 18 mm/hour (0-20)
[2025-01-16] MEDS: NSS (PRESERVATIVE FREE) 10 ML IV ×2 (08:32→20:31)
[2025-01-16] MEDS: PROTONIX IV 40 MG IV ×2 (08:32→20:31)
--- NOTE | 2025-01-16 09:30 | W.PN.HOSP.TC ---
Today's Communication/Plan
-
See plan
Assessment / Plan
Assessment / Plan
Gen: NAD, AAOx3.
Eyes: EOMI, PERRLA, no scleral icterus.
Neck: supple.
CV: RRR, +S1/S2, no m/r/g.
Resp: CTAB, no rales, wheezes, or rhonchi.
Abd: +BS, soft, NT, ND
Skin: No rashes.
Neuro: CN 2-12 intact, non-focal.
Psych: Normal mood and affect.
CT A/P 01/14/25:
1. Significant bowel wall thickening and inflammatory change adjacent to the fourth portion of the duodenum and proximal jejunum.
2. Small extraluminal collections of air and fluid, suggestive of localized perforation. Differential diagnosis includes peptic ulcer disease and severe enteritis. No percutaneously drainable abscess.
3. Additional collection of extraluminal air and fluid adjacent to the gastric antrum, which may be related to duodenal jejunal perforation, or additional gastric peptic ulcer disease.
4. Small amount of perihepatic free fluid, likely reactive.
5. Nephrolithiasis without hydronephrosis.
UGI series: Some thickening of the wall of the third/fourth portion of the duodenum suggesting inflammation. Evaluation somewhat limited without findings to confirm discrete distal duodenal ulcer and without findings to confirm distal duodenal leak
or extravasation of contrast.
PUD with concerns of gastroduodenal perforation:
-NPO/IVFs
-cont PPI
-cont Zosyn
-GI/surgery following
-UGI series as above
-will discuss with GI but likely EGD is indicated at this time. I explained this to the patient. She stated she would refuse an EGD as she 'wants the area to heal.'
Other problems:
Morbid obesity due to excess calories
Essential HTN: IV Hydralazine PRN
Hyperlipidemia
Hypothyroidism: thyroid replacement on hold. Will start IV if NPO > 3 days.
Asthma: Not in acute exac
FULL/SCDs
Anticipated Discharge: Within 24 hours
Subjective/Interval History
-
Date of Service: January 16, 2025
Currently without acute complaints. Denies abdominal pain.
Objective Data
-
Labs:
Laboratory Results
01/16/25 01/16/25
06:07 06:08
WBC 5.8
Hgb 11.7 L
Hct 36.8 L
Plt Count 269
Sodium 140
Potassium 4.1
Chloride 109 H
Carbon Dioxide 27
BUN 9
Creatinine 0.8
Glucose 94
Calcium 9.7
Vital Signs:
Vital Signs
Temp Pulse Resp BP Pulse Ox
98.2 F 54 16 137/81 98
01/16/25 07:00 01/16/25 07:38 01/16/25 07:38 01/16/25 07:00 01/16/25 07:38
I&O
01/15/25 01/16/25 01/17/25
06:59 06:59 06:59
Intake Total 1630 / 1630 50 / 50 825 / 825
Balance 1630 / 1630 50 / 50 825 / 825
--- NOTE | 2025-01-16 13:31 | CM ---
CM following re: discharge planning.
Reviewed pt's chart, met with pt.
per chart review, NPO/IVFs, cont Zosyn, GI/surgery following, continue supportive care.
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
D/C plan: home with anticipated no needs.
CM will follow with discharge plan updates as hospitalization progresses
[2025-01-16 15:15] VITALS: BP 145/72
--- NOTE | 2025-01-16 15:30 | W.PN.UPDATE ---
Update Note
Progress Note Update
d/w UGI/SBFT with Dr. Crenshaw via TT. best way to ensure no extravasation is ct with oral contrast. Patient is adamant she doesn't want EGD now. I did d/w her that this could be a malignancy. she still wants to wait 1 month to ensure it is
healing. We agreed to do a CT with oral contrast to further clarify.
[2025-01-16 23:15] VITALS: BP 112/45
[2025-01-17] MEDS: D5LR 1000 IV (05:38)
[2025-01-17] MEDS: ZOSYN 50 IV (05:38)
[2025-01-17 05:55] VITALS: BMI 46.4
--- NOTE | 2025-01-17 06:11 | W.PN.GI.CBS2 ---
Today's Communication / Plan
-
Please see assessment and plan for details.
Assessment / Plan
-
1. Enteritis: With severe thickening in the distal duodenum, with possible microperforation, though overall feeling well, no leukocytosis or fever, no extravasation on CT with oral contrast, no significant tenderness, tolerating diet without
difficulty. We discussed possible etiologies including malignancy such as lymphoma. She still defers endoscopy and wants to wait 3 to 4 weeks. At this point we will await her morning labs, and will increase to full liquid diets. We discussed
liquid diet with supplementation at home and delayed gastric emptying precautions. If she tolerates this and labs are okay then is okay to DC from GI standpoint, on PPI twice daily, plan EGD in 3 to 4 weeks.
Subjective
Subjective
Date of Service: January 17, 2025
Patient feeling well, denies any abdominal pain, no nausea, vomiting, diarrhea, fever or chills, tolerating clears without difficulty. CT with oral contrast reviewed, findings similar to previous imaging, without signs of extravasation.
Objective
Data Reviewed
Laboratory Data:
Laboratory Results
Magnesium 1.9 mg/dl (1.6-2.3) 01/15/25 05:35
Total Bilirubin 0.6 mg/dl (0.2-1.3) 01/14/25 18:12
AST 14 U/L (14-36) 01/14/25 18:12
ALT 13 U/L (0-35) 01/14/25 18:12
Alkaline Phosphatase 52 U/L (38-126) 01/14/25 18:12
Lipase 28 U/L (23-300) 01/14/25 18:12
Vital Signs and I&O:
Vital Signs
Temp Pulse Resp BP Pulse Ox
97.9 F 59 18 112/45 99
01/16/25 23:15 01/16/25 23:15 01/16/25 23:15 01/16/25 23:15 01/16/25 23:15
I&O
01/15/25 01/16/25 01/17/25
06:59 06:59 06:59
Intake Total 1630 / 1630 50 / 50 2710 / 2710
Balance 1630 / 1630 50 / 50 2710 / 2710
Physical Exam
Physical Exam
General: NAD
Abdomen: normal bowel sounds, soft, no tenderness, no masses or bruits, no ascites
[2025-01-17 07:15] LABS: Hematocrit 38.8 % (37.0-47.0); Hemoglobin 12.4 g/dL (12.0-16.0); Mean Corpuscular Hgb 27.9 pg (27.0-31.0); Mean Corpuscular Volume 87.2 fL (81.0-99.0); Platelet Count 285 10^3/uL (130-400); Red Blood Cell Count 4.45 10^6/uL (4.20-5.40); Red Cell Dist. Width 14.2 % (11.5-14.5); White Blood Cell Count 5.9 10^3/uL (4.8-10.8)
[2025-01-17 07:42] LABS: Blood Urea Nitrogen 9 mg/dl (7-17); Calcium 9.7 mg/dl (8.4-10.2); Carbon Dioxide 27 mmol/L (22-30); Chloride 106 mmol/L (98-107); Estimated Creatinine Clearance 104 ml/min; Glucose 88 mg/dl (70-99); Sodium 140 mmol/L (135-145); eGFR > 60.00
[2025-01-17 08:09] LABS: CEA 0.87 ng/ml
[2025-01-17] MEDS: SYMBICORT 160/4.5 MCG INHALER 2 PUFF INH (08:25)
--- NOTE | 2025-01-17 08:26 | W.PN.HOSP.TC ---
Addendum entered and electronically signed by Meliton Camejo MD 01/17/25 14:37:
Total time spent on d/c = 39 min. This included today's physical exam, progress note, review of laboratory and diagnostic data, preparation of discharge documents and prescriptions, and discussions about the pt's hospital course and discharge plan
with the patient and other director medical economics involved in the patient's care.
Original Note:
Today's Communication/Plan
-
d/c home if pt tolerates full liquids
Assessment / Plan
Assessment / Plan
Gen: NAD, AAOx3.
Eyes: EOMI, PERRLA, no scleral icterus.
Neck: supple.
CV: remains RRR, +S1/S2, no m/r/g.
Resp: remains CTAB, no rales, wheezes, or rhonchi.
Abd: remains +BS, soft, NT, ND
Skin: No rashes.
Neuro: CN 2-12 intact, non-focal.
Psych: Normal mood and affect.
CT A/P 01/14/25:
1. Significant bowel wall thickening and inflammatory change adjacent to the fourth portion of the duodenum and proximal jejunum.
2. Small extraluminal collections of air and fluid, suggestive of localized perforation. Differential diagnosis includes peptic ulcer disease and severe enteritis. No percutaneously drainable abscess.
3. Additional collection of extraluminal air and fluid adjacent to the gastric antrum, which may be related to duodenal jejunal perforation, or additional gastric peptic ulcer disease.
4. Small amount of perihepatic free fluid, likely reactive.
5. Nephrolithiasis without hydronephrosis.
UGI series: Some thickening of the wall of the third/fourth portion of the duodenum suggesting inflammation. Evaluation somewhat limited without findings to confirm discrete distal duodenal ulcer and without findings to confirm distal duodenal leak
or extravasation of contrast.
PUD with concerns of gastroduodenal perforation:
-GI/surgery following
-UGI series as above
-was NPO/IVFs
-cont PPI BID
-was on Zosyn, now on H pylori tx with Clarithromycin, Amox
-appreciate GI. Patient is deferring endoscopy and would like to wait 3 to 4 weeks. Advance diet to full liquid diet. If she tolerates a full liquid diet she is medically cleared for discharge by GI.
Other problems:
Morbid obesity due to excess calories
Essential HTN: IV Hydralazine PRN
Hyperlipidemia
Hypothyroidism: restart Levoxyl
Asthma: Not in acute exac
FULL/SCDs
Anticipated Discharge: Today
Subjective/Interval History
-
Date of Service: January 17, 2025
Denies abdominal pain or vomiting.
Objective Data
-
Labs:
Laboratory Results
01/17/25
06:23
WBC 5.9
Hgb 12.4
Hct 38.8
Plt Count 285
Sodium 140
Potassium 4.0
Chloride 106
Carbon Dioxide 27
BUN 9
Creatinine 0.8
Glucose 88
Calcium 9.7
Vital Signs:
Vital Signs
Temp Pulse Resp BP Pulse Ox
97.9 F 59 18 112/45 99
01/16/25 23:15 01/16/25 23:15 01/16/25 23:15 01/16/25 23:15 01/16/25 23:15
I&O
01/16/25 01/17/25 01/18/25
06:59 06:59 06:59
Intake Total 2709
Balance 2709
[2025-01-17 08:30] VITALS: BP 128/77
--- NOTE | 2025-01-17 08:33 | W.PN.UPDATE ---
Update Note
Progress Note Update
I discussed with surgery who had the thought of empiric treatment for H. pylori. I discussed with patient, and will switch Zosyn to H. pylori treatment to complete 10 days empirically.
[2025-01-17] MEDS: PROTONIX IV 40 MG IV (09:53)
[2025-01-17] MEDS: NSS (PRESERVATIVE FREE) 10 ML IV (09:53)
[2025-01-17] MEDS: AMOXIL 1000 MG PO (09:53)
[2025-01-17] MEDS: BIAXIN 500 MG PO (09:53)
--- NOTE | 2025-01-17 13:33 | CM ---
CM following re: discharge planning.
Reviewed pt's chart, met with pt.
Pt is a 69 year old female admitted with [primary dx of Abdominal symptoms.
Pt reports she lives with her daughter, and granddaughter in a [place] with 1 steps to enter and pt described herself as is independent at baseline and working.
According to MD pt most likely will be discharged home today. pt is aware, expressed her agreement and pt stated her daughter is coming to transport her home. IMM reviewed, placed on chart, pt has a copy.
No after care VN services indicated.
D/C plan: home no needs. Daughter to transport.
[2025-01-17 14:32] VITALS: BP 143/82
[2025-01-18 14:31] LABS: tTG IgA Antibody 4.5 EU/ml (0-19); tTG IgG Antibody 4.8 EU/ml (0-19)
--- NOTE | 2025-01-18 16:49 | W.DCSUMMARY ---
Discharge Summary
Discharge Data
Date of Admission: 01/14/25
Date of Discharge: 01/17/25
-
Pending Results: No
Hospital Course
Primary diagnoses:
Peptic ulcer disease
Secondary diagnoses:
Morbid obesity due to excess calories
Essential hypertension
Hyperlipidemia
Hypothyroidism
Asthma
Consultants:
General Surgery
Gastroenterology
Imaging:
CT A/P 01/14/25:
1. Significant bowel wall thickening and inflammatory change adjacent to the fourth portion of the duodenum and proximal jejunum.
2. Small extraluminal collections of air and fluid, suggestive of localized perforation. Differential diagnosis includes peptic ulcer disease and severe enteritis. No percutaneously drainable abscess.
3. Additional collection of extraluminal air and fluid adjacent to the gastric antrum, which may be related to duodenal jejunal perforation, or additional gastric peptic ulcer disease.
4. Small amount of perihepatic free fluid, likely reactive.
5. Nephrolithiasis without hydronephrosis.
UGI series: Some thickening of the wall of the third/fourth portion of the duodenum suggesting inflammation. Evaluation somewhat limited without findings to confirm discrete distal duodenal ulcer and without findings to confirm distal duodenal leak
or extravasation of contrast.
Hospital course: 69-year-old female presented with the chief complaint of abdominal pain as outlined in the H&P done on admission. Patient was initially n.p.o. and supported with IV fluids. She was seen in consultation by general surgery and
gastroenterology. She was placed on proton pump inhibitor and empiric Zosyn. Imaging above. The patient deferred endoscopy as she wanted to wait 3 to 4 weeks. Her diet was advanced to a full liquid diet. She was medically cleared for discharge
by gastroenterology on H pylori tx with Clarithromycin, Amox, PPI.
Discharge Plan
-
Patient Disposition: Home (Routine Discharge)
Discharge Diagnosis/Procedures: Peptic ulcer disease
Condition: Good
Diet: Other diet
Additional Diets: full liquids
Activity: As tolerated
Driving Restrictions: As prior to admission
Referrals:
Chandu Davidson MD [Active, Gastroenterology]
Deshawn Milner PA [Family Provider, General] - in less than 1 week
Prescriptions:
New
amoxicillin 500 mg Capsule
1,000 mg PO BID Qty: 38 0RF
clarithromycin 500 mg Tablet
500 mg PO BID Qty: 19 0RF
pantoprazole [Protonix] 40 mg tablet,delayed release (DR/EC)
40 mg PO BID Qty: 60 0RF
Continued
levothyroxine 100 mcg Tablet
100 mcg PO DAILY
cholecalciferol (vitamin D3) [Vitamin D3] 25 mcg (1,000 unit) Tablet
25 mcg PO DAILY
albuterol sulfate 90 mcg/actuation Hfa Aerosol Inhaler
2 puff INHALATION R Q6HPRN PRN (Reason: sob)
fenofibrate 160 mg Tablet
160 mg PO DAILY
budesonide-formoterol [Symbicort] 160-4.5 mcg/actuation Hfa Aerosol Inhaler
2 puff INHALATION BID
Discontinued
hydrochlorothiazide 25 mg Tablet
25 mg PO DAILY
ibuprofen [Advil] 200 mg Tablet
600 mg PO Q6HPRN PRN (Reason: mild pain)
Discharge Orders:
Discharge Patient (As Directed); Ordered 01/17/25
Ordered By: Meliton Camejo
Discharge Date and Time
Discharge Date/Time: 01/17/25 15:53
Print Language: URDU
[2025-01-19 00:20] LABS: Endomysial IgA Antibody Titer <1:10 (<1:10)
[2025-01-19 02:40] LABS: Gastrin 179 pg/mL (0-100)
[2025-01-19 12:25] LABS: CA 19-9 7 U/mL (<=35)
== END 2025-01-17 15:53 | disposition home or self-care (01) | DRG 381 ==
LOC: 2 NORTH 23:26
PROVIDERS: Hospitalist; Registered Nurse; ADMITTING PHYSICIAN Internal Medicine; ATTENDING PHYSICIAN Internal Medicine; CONSULT PHYSICIAN Internal Medicine; CONSULT PHYSICIAN Surgery; EMERGENCY PHYSICIAN Student in an Organized Health Care Education/Training Program; FAMILY PHYSICIAN Physician Assistant Medical
DX: K26.5 Chronic or unspecified duodenal ulcer with perforation (principal); Z68.42 Body mass index [BMI] 45.0-49.9, adult; E03.9 Hypothyroidism, unspecified; E66.01 Morbid (severe) obesity due to excess calories; E78.00 Pure hypercholesterolemia, unspecified; I10 Essential (primary) hypertension; J45.909 Unspecified asthma, uncomplicated; E86.0 Dehydration; Z79.890 Hormone replacement therapy; Z79.51 Long term (current) use of inhaled steroids; Z88.6 Allergy status to analgesic agent; Z88.1 Allergy status to other antibiotic agents; Z88.5 Allergy status to narcotic agent; Z88.2 Allergy status to sulfonamides
CPT/HCPCS: 74150; 74177; 74240; 74248; 80048; 80053; 82378; 82784; 82941; 83516; 83690; 83735; 83993; 85025; 85027; 85652; 86140; 86231; 86301; 87045; 87046; 87324; 87427; 87449; 89055; 94640; 96361; 96365; 96375; 99284; Q9967

== ENCOUNTER 2025-01-25 07:15 | Emergency (ER) | payer MEDICARE, OTHER, SELFPAY ==
[2025-01-25 07:16] VITALS: BP 183/89
--- NOTE | 2025-01-25 07:30 | ED.GENMED ---
History of Present Illness
General
Chief Complaint: Skin Problem
Source: patient
Exam Limitations: none
Time Seen by Provider: 01/25/25 07:19
Nursing documentation reviewed up to this point in time: agreed with
History of Present Illness
History of Present Illness:
see MDM
Past History
Past History
ED Past Medical History: Asthma, HTN, Hypercholesterolemia and Hypothyroidism
ED Past Surgical History: Tonsilectomy
Social History
Tobacco: Non-smoker
Alcohol: None
Drug: None
Personal:
Living: with family
Employment: Employed
Review of Systems
Review of Systems
Allergies reviewed?: Yes
All Other Systems: Not applicable
Phy Exam
Physical Exam
Physical Exam:
GENERAL: Alert , in no apparent distress
EYE: pupils equal and reactive
NECK: Supple
ENT: o/p clr, mmm.
CARDIAC: Regular rate and rhythm .
LUNGS: Clear breath sounds bilaterally, no acute respiratory distress, no wheezes/rales/rhonchi
ABDOMEN: Soft, without focal tenderness, no r/g, no cvat, normal bowel sounds
NEUROLOGICAL: Alert and oriented, no focal neuro deficits
SKIN: Warm and dry, skin intact.
MUSCULOSKELETAL:moderate LE edema both legs
slgithly worse on the R
puffy foot
normal pulse
many varicose veins' b/l
mild erythema LLE without tendenress
moderate erythema above the L ankle medially on the calf to the RLE with tednerness;
no bony ankle tendneress
full ankle ROM
PSYCH: Normal and appropriate interaction.
Course
Orders/Labs/Results
Orders:
Orders
01/25/25 07:31
Venous Doppler Lwr Ext Rt [US Periph Venous LOWER Ext RT] Urgent
Comment:
Reason For Exam: RLE swelling, redness;
01/25/25 07:47
Complete Blood Count/With Diff Urgent
Comprehensive Metabolic Panel Urgent
PTT Urgent
Prothrombin Time Urgent
Abnormal Lab Results
01/25/25
07:47
MCHC 32.1 L g/dL
(33.0-37.0)
Absolute Lymphs (auto) 0.9 L 10^3/uL
(1.2-3.4)
Lymphocytes % 15.2 L %
(20.5-51.1)
Chloride 108 H mmol/L
(98-107)
BUN 20 H mg/dl
(7-17)
Glucose 168 H mg/dl
(70-99)
Calcium 10.4 H mg/dl
(8.4-10.2)
01/25/25 07:47
01/25/25 07:47
Vital Signs
Initial and Last Documented VS:
Initial Vital Signs
Temp Pulse Resp BP Pulse Ox
36.6 C 65 18 183/89 97
01/25/25 07:16 01/25/25 07:16 01/25/25 07:16 01/25/25 07:16 01/25/25 07:16
Last Documented Vital Signs
Temp Pulse Resp BP Pulse Ox
36.6 C 61 15 137/69 96
01/25/25 07:16 01/25/25 08:44 01/25/25 08:44 01/25/25 08:44 01/25/25 08:44
MDM/Problems Addressed
Differential Diagnosis Includes:
see MDM
MDM/Problems Addressed:
Note:
CHIEF COMPLAINT(S)
Swelling and pain in the ankle area.
HISTORY OF PRESENT ILLNESS
The patient is a 69-year-old female with h/o HLD, hypothyroid, leg edema
RLE ankle pain/swelling/redness that started 2 days ago with worsening pain
she was recently was hospitalized for enteritis, treated with zosyn intiially and then switched for h pylori abx (clarithromycin, amoxicillin). The gastrointestinal symptoms have since resolved. Around a day after discharge, the patient noticed pain
and swelling in the ankle area, described as increasingly painful and more swollen with time. She mentions the area being consistently red, with more discomfort at night due to increased pressure from swelling compared to in the morning. There is no
fever or chills associated with this condition. She experienced mild abdominal pain during her earlier illness, but denies fever, previous bowel problems, or any history of blood clots. Although she does not experience increased weight gain since
her hospital stay, she lost about 10 pounds prior.
CHRONIC MEDICAL CONDITIONS SIGNIFICANTLY AFFECTING CARE
The patient has a history of hypothyroidism and manages her triglyceride levels with Fenofibrate. She also takes Chlorthalidone for minor swelling.
PHYSICAL EXAM
- Musculoskeletal:
- Movement of toes is good.
- RLE edema, swelling,r edness above the L ankle.
- No significant pain upon palpation above the area.
Nursing notes reviewed and vital signs reviewed.
PROBLEM LIST
- Acute swelling and pain in the ankle area.
- History of recent enteritis, now resolved.
- Hypothyroidism.
- Triglyceride management with Fenofibrate.
- Minor swelling managed with Chlorthalidone.
PLAN
- Order an ultrasound to evaluate for a possible blood clot in the leg.
- Review laboratory results to assess for any signs of infection or white blood cell count elevation.
- Evaluate the appropriateness of the current antibiotics concerning skin bacteria coverage in the potential case of cellulitis, and consider changing if necessary to avoid impact on gastrointestinal health.
- Schedule an endoscopy as planned.
DIFFERENTIAL DIAGNOSIS
The Differential Diagnosis includes, in no particular order and is not limited to:
1. Deep vein thrombosis
2. Cellulitis
3. Gout
4. Soft tissue injury
5. Lymphedema
6. Venous insufficiency
7. Peripheral arterial disease
8. Septic arthritis
9. Acute arthritis
10. Inflammatory bowel-related arthritis
CARE-UPDATE
01/25/25 - 09:02
Ultrasound results show no blood clot and the white blood cell count is normal, indicating no severe cellulitis. The current condition is suspected to be stasis dermatitis due to chronic edema, with no apparent bacterial infection as the patient is
already on amoxicillin. It was advised against changing antibiotics to avoid potential GI issues. . Warm compresses are recommended 2-3 times daily to help with symptoms, and a work note will be provided to facilitate rest and elevation of the leg.
Considering the potential challenge of using compression stockings, wrapping the ankle and slightly above may be beneficial as an alternative.
*Pulse Oximetry
SaO2: 97
Oxygen Mode of Delivery: Room air
*Critical Care Note
Total Time (30-74mins, 75-104mins- exclusive of procedures): Not Applicable
ED Attending Note
-
Portions of this chart may have been created with voice recognition software.� Occasional wrong word or��sound alike� substitutions may have occurred due to the inherent limitations of voice recognition software.
Discharge Plan
Departure
Patient Disposition: Home (Routine Discharge)
Date of Disposition: 01/25/25
Time of Disposition: 09:02
Patient with high blood pressure during this ER visit?: No
Condition: Fair
Covid-19: Not Applicable
Discharge Problem:
Venous stasis dermatitis
Instructions: Swelling
Prescriptions:
No Action
levothyroxine 100 mcg Tablet
100 mcg PO DAILY
cholecalciferol (vitamin D3) [Vitamin D3] 25 mcg (1,000 unit) Tablet
25 mcg PO DAILY
albuterol sulfate 90 mcg/actuation Hfa Aerosol Inhaler
2 puff INHALATION R Q6HPRN PRN (Reason: sob)
fenofibrate 160 mg Tablet
160 mg PO DAILY
budesonide-formoterol [Symbicort] 160-4.5 mcg/actuation Hfa Aerosol Inhaler
2 puff INHALATION BID
amoxicillin 500 mg Capsule
1,000 mg PO BID Qty: 38 0RF
clarithromycin 500 mg Tablet
500 mg PO BID Qty: 19 0RF
pantoprazole [Protonix] 40 mg tablet,delayed release (DR/EC)
40 mg PO BID Qty: 60 0RF
Referrals:
Deshawn Milner PA [Family Provider, General]
Activity Restrictions/Additional Instructions:
Your symptoms seem to be related to venous stasis dermatitis which happens when you have chronic edema in your legs. Watch this area closely, you can try warm compresses twice a day. Continue your antibiotics that you are already on. You can
consider wearing a compression stocking or wrapping with an Jason wrap during the day, make sure it is removed at night. Try to elevate your leg. Follow-up with your family doctor later this week. If the redness is swelling more proximally you may
need to have a change of your antibiotics. Return for any concerns like fever, severe pain, inability to walk, or any concerns
Interventions
Interventions:
*Risk Screen - Suicide Last Done: 01/25/25 07:16
*General Assessment Last Done: 01/25/25 07:21
*Neglect/Abuse Screening Last Done: 01/25/25 07:16
*ED- Fall Risk Assessment Last Done: 01/25/25 07:21
*ED COVID-19 Vaccine History Last Done: 01/25/25 07:21
*Nursing Disposition Last Done: 01/25/25 09:15
ED-Skin Assessment Last Done: 01/25/25 07:47
Discharge Date and Time
Discharge Date/Time: 01/25/25 09:16
Print Language: TELUGU
[2025-01-25 07:46] VITALS: BMI 50.2
[2025-01-25 07:56] LABS: % Basophils 1.2 % (0-2); % Immature Granulocytes 0.5 % (0-0.5); % Lymphocytes 15.2 % (20.5-51.1); % Neutrophils 72.1 % (42.2-75.2); Absolute Basophils 0.1 10^3/uL (0-0.2); Absolute Eosinophils 0.3 10^3/uL (0-0.7); Absolute Lymphocytes 0.9 10^3/uL (1.2-3.4); Absolute Monocytes 0.4 10^3/uL (0.1-0.6); Absolute Neutrophils 4.2 10^3/uL (1.4-6.5); Hematocrit 41.4 % (37.0-47.0); Hemoglobin 13.3 g/dL (12.0-16.0); Mean Corp Hgb Conc. 32.1 g/dL (33.0-37.0); Mean Corpuscular Hgb 28.2 pg (27.0-31.0); Mean Corpuscular Volume 87.9 fL (81.0-99.0); Mean Platelet Volume 9.8 fL (7.4-10.4); Nucleated Red Blood Cells % 0 %; Platelet Count 269 10^3/uL (130-400); Red Blood Cell Count 4.71 10^6/uL (4.20-5.40); Red Cell Dist. Width 14.5 % (11.5-14.5); White Blood Cell Count 5.9 10^3/uL (4.8-10.8)
[2025-01-25 08:09] LABS: ALT (SGPT) 19 U/L (0-35); AST (SGOT) 18 U/L (14-36); Albumin 4.1 g/dl (3.5-5.0); Alkaline Phosphatase 50 U/L (38-126); Blood Urea Nitrogen 20 mg/dl (7-17); Calcium 10.4 mg/dl (8.4-10.2); Carbon Dioxide 25 mmol/L (22-30); Chloride 108 mmol/L (98-107); Estimated Creatinine Clearance 121 ml/min; Glucose 168 mg/dl (70-99); Potassium 4.1 mmol/L (3.5-5.1); Sodium 141 mmol/L (135-145); Total Bilirubin 0.5 mg/dl (0.2-1.3); Total Protein 6.4 g/dl (6.3-8.2); eGFR > 60.00
[2025-01-25 08:14] LABS: APTT 30.9 Sec (23.4-35.0); INR 0.98; PT 13.5 Sec (11.4-14.6)
[2025-01-25 08:44] VITALS: BP 137/69
== END 2025-01-25 09:16 | disposition home or self-care (01) ==
LOC: EMR 07:15
PROVIDERS: Physician Assistant; EMERGENCY PHYSICIAN Emergency Medicine; FAMILY PHYSICIAN Physician Assistant Medical
DX: I87.2 Venous insufficiency (chronic) (peripheral) (principal); J45.909 Unspecified asthma, uncomplicated; I10 Essential (primary) hypertension; E78.00 Pure hypercholesterolemia, unspecified; E03.9 Hypothyroidism, unspecified
CPT/HCPCS: 99284; 80053; 85025; 85610; 85730; 93971

== ENCOUNTER 2025-03-22 06:03 | Day surgery (SDC) | payer MEDICARE, OTHER, SELFPAY ==
[2025-03-22 08:04] VITALS: BMI 44.3
[2025-03-22 08:05] VITALS: BMI 44.3
[2025-03-22 08:06] VITALS: BP 139/77
[2025-03-22 11:14] VITALS: BP 128/79
[2025-03-22 11:29] VITALS: BP 137/75
[2025-03-22 11:44] VITALS: BP 133/69
== END 2025-03-22 11:59 | disposition home or self-care (01) ==
LOC: SDS 06:03
PROVIDERS: ATTENDING PHYSICIAN Internal Medicine
DX: K29.40 Chronic atrophic gastritis without bleeding (principal); K29.70 Gastritis, unspecified, without bleeding; K20.90 Esophagitis, unspecified without bleeding; K29.81 Duodenitis with bleeding; K26.3 Acute duodenal ulcer without hemorrhage or perforation; K31.89 Other diseases of stomach and duodenum; R93.3 Abnormal findings on diagnostic imaging of other parts of digestive tract; R10.84 Generalized abdominal pain
CPT/HCPCS: 43239; 88305; 88342

== ENCOUNTER → 2025-04-26 07:50 | Outpatient (REF) | payer MEDICARE, OTHER, SELFPAY | LOC: RAD 07:50 | PROVIDERS: ATTENDING PHYSICIAN Internal Medicine; FAMILY PHYSICIAN Physician Assistant Medical | DX: K26.9 Duodenal ulcer, unspecified as acute or chronic, without hemorrhage or perforation (principal) | CPT/HCPCS: 74177; Q9967 ==

== ENCOUNTER 2025-06-14 06:06 | Day surgery (SDC) | payer MEDICARE, OTHER, SELFPAY ==
[2025-06-14 08:33] VITALS: BP 134/75
[2025-06-14 08:43] VITALS: BMI 46.1
[2025-06-14 09:38] VITALS: BP 165/100
[2025-06-14 09:47] VITALS: BP 144/73
[2025-06-14 10:00] VITALS: BP 152/82
== END 2025-06-14 11:05 | disposition home or self-care (01) ==
LOC: SDS 06:06
PROVIDERS: ATTENDING PHYSICIAN Internal Medicine
DX: K31.89 Other diseases of stomach and duodenum (principal)
CPT/HCPCS: 43239; 88305; 88342